=== PATIENT | male | born 1980 | race Caucasian/White ===

== ENCOUNTER → 2016-09-26 | Outpatient (CLI) | payer OTHER ==
--- NOTE | 2016-09-26 10:17 | RADIOLOGY REPORT (SQ) ---
EXAM DESCRIPTION: U/S ABDOMEN COMPLETE W/O DOP COMPLETED DATE/TIME: 09/26/2016 9:39 am REASON FOR STUDY: ELEVATED LIVER ENZYMES (R74.8) R74.8 ABNORMAL LEVELS OF OTHER SERUM ENZYMES COMPARISON: None. TECHNIQUE: Dynamic and static grayscale images acquired of the abdomen and recorded on PACS. Additio nal selected color Doppler and spectral images recorded. LIMITATIONS: None. FINDINGS: PANCREAS: Poorly visualized due to overlying bowel gas. LIVER: Echotexture is coarse with increased echogenicity consistent with fatty infiltration. LIVER VASCULATURE: Difficult to evaluate due to fatty infiltration. Flow is antegrade. GALLBLADDER: No stones. Normal wall thickness. No pericholecystic fluid. ULTRASOUND-DETECTED SALAZAR'S SIGN: Negative. INTRAHEPATIC DUCTS AND COMMON DUCT: CBD and intrahepatic ducts normal caliber. No filling defects. INFERIOR VENA CAVA: Unremarkable. AORTA: No aneurysm. RIGHT KIDNEY: Normal size. Normal echogenicity. No solid or suspicious masses. No hydronephrosis. No calcifications. LEFT KIDNEY: Normal size. Normal echogenicity. No solid or suspicious masses. No hydronephrosis. No calcifications. SPLEEN:Normal size. No solid masses. PERITONEAL AND PLEURAL SPACES: No ascites or effusions. OTHER: No other significant finding. IMPRESSION: FATTY LIVER. NO OTHER SIGNIFICANT FINDING. TECHNICAL DOCUMENTATION: JOB ID: [id number] [employer]- All Rights Reserved
== END ==
LOC: RAD 08:55
PROVIDERS: ATTEND Physician Assistant
DX: R74.8 Abnormal levels of other serum enzymes (principal); K76.0 Fatty (change of) liver, not elsewhere classified
CPT/HCPCS: 76700

== ENCOUNTER 2018-07-07 13:46 | Emergency (ER) | payer OTHER ==
[2018-07-07] MEDS ORDERED: ACETAMINOPHEN 325 MG TABLET PO ONE (14:27)
--- NOTE | 2018-07-07 14:27 | ER Document Report ---
ED Medical Screen (RME) - General Chief Complaint: Headache Stated Complaint: BLOOD PRESSURE ISSUES Time Seen by Provider: 07/07/18 14:15 Primary Care Provider: VALERIA SNYDER PA-C [Primary Care Provider] - Follow up as needed Mode of Arrival: Ambulatory Information source: Patient TRAVEL OUTSIDE OF THE [place] IN LAST 30 DAYS: No - HPI Patient complains to provider of: HEADACHE, HTN Notes: 07/07/18 14:25 Patient here with complaints of headache and elevated blood pressure. The patient has a history of hypertension, he takes lisinopril and has been taking it normally. Over the last few days has been having some headaches. Today he was feeling lightheaded and having headaches at work, they took his blood pressure and was noted to be 170s over 130s. Blood pressure has improved some here, he still feels lightheaded and has a headache. No head injury, no blood thinners. No numbness, tingling, weakness. No chest pain or shortness of breath. He does complain of some occasional swelling to the bilateral lower extremities. Exam Nontoxic, no distress. Lungs clear and equal throughout. Heart sounds normal. Nonfocal neuro exam. Plan CBC, CMP, troponin, EKG, UA, EKG, chest x-ray, head CT, Tylenol. An initial examination was made on the patient as part of the triage process, and it was determined a more comprehensive evaluation was necessary. Initial labs were ordered and patient was transferred to another provider in the ED who assumed care and finished evaluation and plan. - Related Data Allergies/Adverse Reactions: Sulfa (Sulfonamide Antibiotics) Allergy (Verified 07/07/18 13:47) Past Medical History - Social History Frequency of alcohol use: None Drug Abuse: None - Past Medical History Cardiac Medical History: Reports: Hx Hypertension Renal/ Medical History: Denies: Hx Peritoneal Dialysis - Immunizations Immunizations up to date: Yes Hx Diphtheria, Pertussis, Tetanus Vaccination: Yes Physical Exam - Vital signs Vitals: Temp Pulse Resp BP Pulse Ox 97.7 F 74 18 160/106 H 97 07/07/18 13:51 07/07/18 13:51 07/07/18 13:51 07/07/18 13:51 07/07/18 13:51 Course - Vital Signs Vital signs: Temp Pulse Resp BP Pulse Ox 97.7 F 74 18 160/106 H 97 07/07/18 13:51 07/07/18 13:51 07/07/18 13:51 07/07/18 13:51 07/07/18 13:51 Doctor's Discharge - Discharge Referrals: VALERIA SNYDER PA-C [Primary Care Provider] - Follow up as needed
[2018-07-07 15:11] LABS: ABSOLUTE BASOPHILS # (AUTO) 0.1 10^3/uL (0.0-0.2); ABSOLUTE EOSINOPHILS # (AUTO) 0.1 10^3/uL (0.0-0.6); ABSOLUTE LYMPHOCYTES (AUTO) 3.8 10^3/uL (0.5-4.7); ABSOLUTE MONOCYTES (AUTO) 0.8 10^3/uL (0.1-1.4); ABSOLUTE NEUT (AUTO) 6.1 10^3/uL (1.7-8.2); BASOPHILS % (AUTO) 0.6 % (0-2); EOSINOPHILS % (AUTO) 1.1 % (0-6); HEMATOCRIT 47.6 % (37.9-51.0); HEMOGLOBIN 16.6 g/dL (13.5-17.0); LYMPHOCYTES % (AUTO) 35.2 % (13-45); MEAN CORPUSCULAR HEMOGLOBIN 31.3 pg (27.0-33.4); MEAN CORPUSCULAR HGB CONC 34.8 g/dL (32.0-36.0); MEAN CORPUSCULAR VOLUME 90 fl (80-97); MONOCYTES % (AUTO) 7.3 % (3-13); PLATELET COUNT 235 10^3/uL (150-450); RED BLOOD COUNT 5.28 10^6/uL (4.35-5.55); RED CELL DISTRIBUTION WIDTH 12.8 % (11.5-14.0); SEGMENTED NEUTROPHILS % (AUTO) 55.8 % (42-78); TOTAL CELLS COUNTED % (AUTO) 100 %; WHITE BLOOD COUNT 10.9 10^3/uL (4.0-10.5)
[2018-07-07 15:31] LABS: ALANINE AMINOTRANSFERASE 99 U/L (21-72); ALBUMIN 4.8 g/dL (3.5-5.0); ALKALINE PHOSPHATASE 61 U/L (38-126); ANION GAP 10 (5-19); ASPARTATE AMINO TRANSFERASE 79 U/L (17-59); BILIRUBIN,DIRECT 0.3 mg/dL (0.0-0.4); BILIRUBIN,TOTAL 0.6 mg/dL (0.2-1.3); BLOOD UREA NITROGEN 12 mg/dL (7-20); CALCIUM 9.8 mg/dL (8.4-10.2); CARBON DIOXIDE 30 mmol/L (22-30); CHLORIDE 101 mmol/L (98-107); GLUCOSE 96 mg/dL (75-110); POTASSIUM 3.9 mmol/L (3.6-5.0); SODIUM 141.2 mmol/L (137-145); TOTAL PROTEIN 8.3 g/dL (6.3-8.2)
--- NOTE | 2018-07-07 15:35 | RADIOLOGY REPORT (SQ) ---
EXAM DESCRIPTION: CT HEAD WITHOUT COMPLETED DATE/TIME: 07/07/2018 2:38 pm REASON FOR STUDY: HTN, RICHARDSON COMPARISON: CTA head, 03/29/2013 TECHNIQUE: Axial images acquired through the brain without intravenous contrast. Images reviewed wi th bone, brain and subdural windows. Additional sagittal and coronal reconstructions were generated. Images stored on PACS. All CT scanners at this facility use dose modulation, iterative reconstruction, and/or weight based d osing when appropriate to reduce radiation dose to as low as reasonably achievable (ALARA). [facility]: Dose Right [facility]: CareDose [facility]: Dose Right [facility]: Teradose 4D [facility]: [facility] RADIATION DOSE: 1017 mGy cm LIMITATIONS: None. FINDINGS: VENTRICLES: Normal size and contour. CEREBRUM: No masses. No hemorrhage. No midline shift. No evidence for acute infarction. Normal gra y/white matter differentiation. No areas of low density in the white matter. CEREBELLUM: No masses. No hemorrhage. No alteration of density. No evidence for acute infarction. EXTRAAXIAL SPACES: No fluid collections. No masses. ORBITS AND GLOBE: No intra- or extraconal masses. Normal contour of globe without masses. CALVARIUM: No fracture. PARANASAL SINUSES: No fluid or mucosal thickening. SOFT TISSUES: No mass or hematoma. OTHER: No other significant finding. IMPRESSION: No acute intracranial pathology. No noncontrast CT findings to explain headache. 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 EVIDENCE OF ACUTE STROKE: NO. COMMENT: Quality ID # [id number]: Final reports with documentation of one or more dose reduction techniques (e.g., Automated exposure control, adjustment of the mA and/or kV according to patient size, use of iterative reconstruction technique) TECHNICAL DOCUMENTATION: JOB ID: [id number] [employer]- All Rights Reserved Reading location - IP/workstation name: [email or web address]
[2018-07-07 15:39] LABS: APPEARANCE,URINE CLEAR; BILIRUBIN,URINE NEGATIVE (NEGATIVE); COLOR,URINE COLORLESS; GLUCOSE, URINE NEGATIVE (NEGATIVE); KETONES,URINE NEGATIVE (NEGATIVE); LEUKOCYTE ESTERASE,URINE NEGATIVE (NEGATIVE); NITRITE,URINE NEGATIVE (NEGATIVE); PROTEIN,URINE NEGATIVE (NEGATIVE); URINE SPECIFIC GRAVITY 1.002; UROBILINOGEN,URINE NEGATIVE mg/dL (<2.0)
--- NOTE | 2018-07-07 16:03 | RADIOLOGY REPORT (SQ) ---
EXAM DESCRIPTION: CHEST 2 VIEWS COMPLETED DATE/TIME: 07/07/2018 3:00 pm REASON FOR STUDY: HTN COMPARISON: Two-view chest 08/02/2014 EXAM PARAMETERS: NUMBER OF VIEWS: two views TECHNIQUE: Digital Frontal and Lateral radiographic views of the chest acquired. RADIATION DOSE: NA LIMITATIONS: none FINDINGS: LUNGS AND PLEURA: No opacities, masses or pneumothorax. No pleural effusion. MEDIASTINUM AND HILAR STRUCTURES: No masses or contour abnormalities. HEART AND VASCULAR STRUCTURES: Heart normal size. No evidence for failure. BONES: No acute findings. HARDWARE: None in the chest. OTHER: No other significant finding. IMPRESSION: NO ACUTE RADIOGRAPHIC FINDING IN THE CHEST. TECHNICAL DOCUMENTATION: JOB ID: [id number] [employer]- All Rights Reserved Reading location - IP/workstation name: [email or web address]
[2018-07-07] MEDS ORDERED: IBUPROFEN 800 MG TABLET PO ONE (17:57)
--- NOTE | 2018-07-07 17:57 | ER Document Report ---
ED General - General Chief Complaint: Headache Stated Complaint: BLOOD PRESSURE ISSUES Time Seen by Provider: 07/07/18 14:15 Primary Care Provider: VALERIA SNYDER PA-C [Primary Care Provider] - Follow up as needed Mode of Arrival: Ambulatory Information source: Patient TRAVEL OUTSIDE OF THE [place] IN LAST 30 DAYS: No - HPI Patient complains to provider of: Blood pressure elevated, headaches Onset: Other Onset/Duration: Persistent - Last couple of days, Waxing and waning Quality of pain: Pressure, Sharp Severity: Moderate Pain Level: 2 Associated symptoms: None Exacerbated by: Denies Relieved by: Denies Similar symptoms previously: No Recently seen / treated by doctor: No Notes: 38-year-old male coming in today with waxing and waning headaches for the last several days and noticed an elevated blood pressure. Denies chest pain shortness of breath. Some nausea occasionally from pain. No vomiting. No fevers or chills. No neck stiffness. - Related Data Allergies/Adverse Reactions: Sulfa (Sulfonamide Antibiotics) Allergy (Verified 07/07/18 13:47) Past Medical History - General Information source: Patient - Social History Smoking Status: Never Smoker Frequency of alcohol use: None Drug Abuse: None Family History: Reviewed & Not Pertinent Patient has suicidal ideation: No Patient has homicidal ideation: No - Past Medical History Cardiac Medical History: Reports: Hx Hypertension Renal/ Medical History: Denies: Hx Peritoneal Dialysis - Immunizations Immunizations up to date: Yes Hx Diphtheria, Pertussis, Tetanus Vaccination: Yes Review of Systems - Review of Systems Notes: Constitutional: No fevers. No chills. EENT: No eye redness. No eye pain. No ear pain. No sore throat. Cardiovascular: No chest pain. No palpitations. Respiratory: No cough. No shortness of breath. No respiratory distress. Gastrointestinal: No abdominal pain. No nausea, vomiting, or diarrhea. Genitourinary: Atraumatic. No lesions. No pain. No discharge. Musculoskeletal: Atraumatic. No swelling. No deformities. Skin: No rash or lesions. Lymphatic: No swollen lymph nodes. Neurologic: Positive for headache Psychiatric: No suicidal or homicidal ideation. Physical Exam - Vital signs Vitals: Temp Pulse Resp BP Pulse Ox 97.7 F 74 18 160/106 H 97 07/07/18 13:51 07/07/18 13:51 07/07/18 13:51 07/07/18 13:51 07/07/18 13:51 - Notes Notes: General: Well-developed, well-nourished. In no acute distress. Non-toxic appearing. Cardiac: Well-perfused. Regular rate and rhythm. No murmurs, rubs, or gallops. Pulmonary: No respiratory distress. No cyanosis. Bilateral lung fiels are clear to auscultation. Abdominal: Non-distended. Non-rigid. Bowels sounds are present in all four quadrants. No guarding or rebound. HEENT: Head is atraumatic. Conjunctivae not reddened. No tearing. PERRL. EOMI. Orbits atraumatic. No periorbital swelling or erythema. Oropharynx is without erythema, swelling, or exudates. Neck: Supple. No adenopathy. No meningismus. Dermatologic: Warm with good turgor. No rash. Atraumatic. Chest: Atraumatic. No chest wall tenderness to palpation. Musculoskeletal: Moves all extremities well. No range of motion deficits. no muscular or joint tenderness. No paraspinal muscle tenderness. no midline spinal tenderness or step-off. Genitourinary: Examination deferred Neurologic: No gross neurologic deficits. Psychiatric: Normal mood. Course - Re-evaluation Re-evalutation: 07/07/18 17:54 Patient's blood pressure is 160/106. Definitely not too worried about it at this point. I think probably his blood pressure is spiking secondary to these headaches. He is kind of in a hurry to get out here saying go to his son's baseball game. I offered him a Toradol shot which she declined. He prefer ibuprofen. We will discharge him home with some Fioricet if he needs it. - Vital Signs Vital signs: Temp Pulse Resp BP Pulse Ox 97.7 F 74 18 160/106 H 97 07/07/18 13:51 07/07/18 13:51 07/07/18 13:51 07/07/18 13:51 07/07/18 13:51 - Laboratory Result Diagrams: 07/07/18 14:55 07/07/18 14:55 Laboratory results interpreted by me: 07/07/18 07/07/18 14:55 14:55 WBC 10.9 H AST 79 H ALT 99 H Total Protein 8.3 H Discharge - Discharge Clinical Impression: Elevated blood pressure reading Headache Qualifiers: Headache type: unspecified Headache chronicity pattern: acute headache Intractability: not intractable Qualified Code(s): R51 - Headache Condition: Good Disposition: HOME, SELF-CARE Instructions: Headache ([facility]) Additional Instructions: Follow-up with your primary care doctor for your blood pressure. For your headaches, try ibuprofen 4 tablets [id number] every 8 hours as needed. If you are having significantly worse headaches that are not responsive to ibuprofen, please refer to the directions on the bottle of Fioricet that was prescribed to you. Prescriptions: Butalb/Acetaminophen/Caffeine [Fioricet 50-300-40 mg Capsule] 1 cap PO Q6HP PRN #20 cap PRN Reason: Forms: Elevated Blood Pressure Referrals: VALERIA SNYDER PA-C [Primary Care Provider] - Follow up in 3-5 days
[2018-07-07 18:06] VITALS: BP 153/104
--- NOTE | 2018-07-07 18:30 | EKG REPORT ---
SEVERITY:- ABNORMAL ECG - SINUS RHYTHM VENTRICULAR PREMATURE COMPLEX LEFT VENTRICULAR HYPERTROPHY BORDERLINE T ABNORMALITIES, INFERIOR LEADS BORDERLINE PROLONGED QT INTERVAL : Confirmed by: Jose Juan Walker MD 07-Jul-2018 18:29:03
== END 2018-07-07 18:23 | disposition home or self-care (01) ==
LOC: ER 13:46
DX: R51 Headache (principal); R03.0 Elevated blood-pressure reading, without diagnosis of hypertension; Z88.2 Allergy status to sulfonamides
CPT/HCPCS: 36415; 70450; 71046; 80053; 81001; 84484; 85025; 93005; 93010; 99284

== ENCOUNTER 2019-12-05 13:11 | Emergency (ER) | payer OTHER ==
--- NOTE | 2019-12-05 13:37 | ER Document Report ---
ED Medical Screen (RME) - General Chief Complaint: Abdominal Pain Stated Complaint: ABDOMINAL PAIN Time Seen by Provider: 12/05/19 13:31 Primary Care Provider: VALERIA SNYDER PA-C [Primary Care Provider] - Follow up as needed Mode of Arrival: Ambulatory Information source: Patient Notes: 39-year-old male presented to ED for complaint of abdominal pain right upper quadrant. He states he has had the pain off and on for more than a week. He states that he has not had any nausea vomiting or fever. He states when his palpated his right upper quadrant he is very tender. He states he is having normal bowel movements. He does have a history of high blood pressure and cholesterol. He states he does not smoke has never smoked he used to drink once a month but has not drank in several years and does not use any illicit drugs. Patient is alert oriented respirations regular nonlabored speaking in full sentences. He does not appear to be in any acute distress at the moment. I have greeted and performed a rapid initial assessment of this patient. A comprehensive ED assessment and evaluation of the patient, analysis of test results and completion of medical decision making process will be conducted by an additional ED providers. TRAVEL OUTSIDE OF THE [place] IN LAST 30 DAYS: No - Related Data Allergies/Adverse Reactions: Sulfa (Sulfonamide Antibiotics) Allergy (Verified 07/07/18 13:47) Past Medical History - Past Medical History Cardiac Medical History: Reports: Hx Hypertension Renal/ Medical History: Denies: Hx Peritoneal Dialysis - Immunizations Immunizations up to date: Yes Hx Diphtheria, Pertussis, Tetanus Vaccination: Yes Physical Exam - Vital signs Vitals: Temp Pulse Resp BP Pulse Ox 98.0 F 89 20 132/87 H 99 12/05/19 13:15 12/05/19 13:15 12/05/19 13:15 12/05/19 13:15 12/05/19 13:15 Course - Vital Signs Vital signs: Temp Pulse Resp BP Pulse Ox 98.0 F 89 20 132/87 H 99 12/05/19 13:15 12/05/19 13:15 12/05/19 13:15 12/05/19 13:15 12/05/19 13:15 Doctor's Discharge - Discharge Referrals: VALERIA SNYDER PA-C [Primary Care Provider] - Follow up as needed
[2019-12-05 13:58] LABS: ABSOLUTE BASOPHILS # (AUTO) 0.1 10^3/uL (0.0-0.2); ABSOLUTE EOSINOPHILS # (AUTO) 0.1 10^3/uL (0.0-0.6); ABSOLUTE LYMPHOCYTES (AUTO) 2.4 10^3/uL (0.5-4.7); ABSOLUTE MONOCYTES (AUTO) 0.6 10^3/uL (0.1-1.4); ABSOLUTE NEUT (AUTO) 5.2 10^3/uL (1.7-8.2); BASOPHILS % (AUTO) 0.7 % (0-2); EOSINOPHILS % (AUTO) 0.9 % (0-6); HEMATOCRIT 46.1 % (37.9-51.0); HEMOGLOBIN 16.6 g/dL (13.5-17.0); LYMPHOCYTES % (AUTO) 29.3 % (13-45); MEAN CORPUSCULAR HEMOGLOBIN 31.8 pg (27.0-33.4); MEAN CORPUSCULAR VOLUME 88 fl (80-97); MONOCYTES % (AUTO) 6.9 % (3-13); PLATELET COUNT 230 10^3/uL (150-450); RED BLOOD COUNT 5.21 10^6/uL (4.35-5.55); RED CELL DISTRIBUTION WIDTH 12.5 % (11.5-14.0); SEGMENTED NEUTROPHILS % (AUTO) 62.2 % (42-78); TOTAL CELLS COUNTED % (AUTO) 100 %; WHITE BLOOD COUNT 8.3 10^3/uL (4.0-10.5)
[2019-12-05 14:21] LABS: ALBUMIN 4.4 g/dL (3.5-5.0); ALKALINE PHOSPHATASE 73 U/L (38-126); ANION GAP 6 (5-19); ASPARTATE AMINO TRANSFERASE 44 U/L (17-59); BILIRUBIN,DIRECT 0.2 mg/dL (0.0-0.4); BILIRUBIN,TOTAL 0.7 mg/dL (0.2-1.3); BLOOD UREA NITROGEN 15 mg/dL (7-20); CARBON DIOXIDE 29 mmol/L (22-30); CHLORIDE 98 mmol/L (98-107); CREATINE KINASE 82 U/L (55-170); GLUCOSE 271 mg/dL (75-110); POTASSIUM 4.3 mmol/L (3.6-5.0); TOTAL PROTEIN 7.3 g/dL (6.3-8.2)
--- NOTE | 2019-12-05 15:13 | RADIOLOGY REPORT (SQ) ---
EXAM DESCRIPTION: U/S ABDOMEN LIMITED W/O DOP IMAGES COMPLETED DATE/TIME: 12/05/2019 2:53 pm REASON FOR STUDY: ruq abdominal pain COMPARISON: 09/26/2016 TECHNIQUE: Dynamic and static grayscale images acquired of the abdomen and recorded on PACS. Gavnio gelacio selected color Doppler and spectral images recorded. LIMITATIONS: None. FINDINGS: PANCREAS: No masses. Visualized pancreatic duct normal caliber. LIVER: Hepatic steatosis. No focal mass lesion. No intrahepatic biliary dilatation. LIVER VASCULATURE: Normal directional flow of the main portal vein and hepatic veins. GALLBLADDER: Gallstone(s). No pericholecystic fluid. No wall thickening. ULTRASOUND-DETECTED SALAZAR'S SIGN: Negative. INTRAHEPATIC DUCTS AND COMMON DUCT: CBD and intrahepatic ducts normal caliber. No filling defects. INFERIOR VENA CAVA: Normal flow. AORTA: No aneurysm. RIGHT KIDNEY: Normal size. Normal echogenicity. No solid or suspicious masses. No hydronephrosis. No calcifications. PERITONEAL AND RIGHT PLEURAL SPACE: No ascites or effusions. OTHER: No other significant findings. IMPRESSION: Cholelithiasis without evidence of cholecystitis. Hepatic steatosis. TECHNICAL DOCUMENTATION: JOB ID: [id number] 2010 [employer] All Rights Reserved Reading location - IP/workstation name: [email or web address]
--- NOTE | 2019-12-05 16:48 | ER Document Report ---
ED GI/ - General Chief Complaint: Abdominal Pain Stated Complaint: ABDOMINAL PAIN Time Seen by Provider: 12/05/19 13:31 Primary Care Provider: VALERIA SYNDER PA-C [Primary Care Provider] - Follow up as needed Mode of Arrival: Ambulatory Notes: CHIEF COMPLAINT: Right upper quadrant pain for 2 weeks HPI: 39-year-old male presenting for evaluation of intermittent right upper quadrant pain over the last 2 weeks more persistent over the last 3 days slight nausea no vomiting no fever. No chest pain. Patient describes the discomfort as a soreness through the right upper quadrant periumbilical region. Patient has moved his bowels recently. ROS: See HPI - all other systems were reviewed and are otherwise negative Constitutional: no fever Eyes: no drainage, no blurred vision ENT: no runny nose, no sore throat Cardiovascular: no chest pain Resp: no SOB, no cough GI: no vomiting, no diarrhea, + abdominal pain : no dysuria Integumentary: no rash Allergy: no hives Musculoskeletal: no extremity pain or swelling Neurological: no numbness/tingling, no weakness MEDICATIONS: I agree with the patient medications as charted by the RN. ALLERGIES: I agree with the allergies as charted by the RN. PAST MEDICAL HISTORY/PAST SURGICAL HISTORY: Reviewed and agree as charted by RN. SOCIAL HISTORY: Reviewed and agree as charted by RN. FAMILY HISTORY: No significant familial comorbid conditions directly related to patient complaint EXAM: Reviewed vital signs as charted by RN. CONSTITUTIONAL: Alert and oriented and responds appropriately to questions. Well-appearing; well-nourished HEAD: Normocephalic; atraumatic EYES: PERRL; Conjunctivae clear, sclerae non-icteric ENT: normal nose; no rhinorrhea; moist mucous membranes; pharynx without lesions noted, no uvula edema or deviation, no tonsillar hypertrophy, phonation normal NECK: Supple without meningismus; non-tender; no cervical lymphadenopathy, no masses CARD: RRR; no murmurs, no clicks, no rubs, no gallops; symmetric distal pulses RESP: Normal chest excursion without splinting or tachypnea; breath sounds clear and equal bilaterally; no wheezes, no rhonchi, no rales, pulse oximetry 98% on room air not hypoxic ABD/GI: Normal bowel sounds; non-distended; soft, mild tenderness in the right upper quadrant on palpation, mild positive Dominguez's 39-year-old male, no rebound, no guarding; no palpable organomegaly or masses. BACK: The back appears normal and is non-tender to palpation, there is no CVA tenderness EXT: Normal ROM in all joints; non-tender to palpation; no cyanosis, no effusions, no edema SKIN: Normal color for age and race; warm; dry; good turgor; no acute lesions noted NEURO: Moves all extremities equally; Motor and sensory function intact PSYCH: The patient's mood and manner are appropriate. Grooming and personal hygiene are appropriate. MDM: Presenting for right upper quadrant pain intermittently for 2 weeks worse over the last 3 days. No fever. Awaiting screening labs. Ultrasound ordered through triage process shows cholelithiasis no cholecystitis. Patient declines pain medication. TRAVEL OUTSIDE OF THE [place] IN LAST 30 DAYS: No - Related Data Allergies/Adverse Reactions: Sulfa (Sulfonamide Antibiotics) Allergy (Verified 07/07/18 13:47) Past Medical History - General Information source: Patient - Social History Smoking Status: Unknown if Ever Smoked Family History: Reviewed & Not Pertinent - Past Medical History Cardiac Medical History: Reports: Hx Hypertension Renal/ Medical History: Denies: Hx Peritoneal Dialysis - Immunizations Immunizations up to date: Yes Hx Diphtheria, Pertussis, Tetanus Vaccination: Yes Physical Exam - Vital signs Vitals: Temp Pulse Resp BP Pulse Ox 98.0 F 89 20 132/87 H 99 12/05/19 13:15 12/05/19 13:15 12/05/19 13:15 12/05/19 13:15 12/05/19 13:15 Course - Re-evaluation Re-evalutation: 12/05/19 17:36 Patient is comfortable at this time. We discussed evaluation results. He will follow-up outpatient with surgery. Has not required pain management in the emergency department I will call the patient in pain medicine and nausea medicine at his pharmacy. I gave him strict return precautions for worsening or uncontrolled pain or vomiting at home. Patient verbalizes understanding - Vital Signs Vital signs: Temp Pulse Resp BP Pulse Ox 98.0 F 89 20 132/87 H 99 12/05/19 17:01 12/05/19 13:15 12/05/19 13:15 12/05/19 13:15 12/05/19 13:15 - Laboratory Result Diagrams: 12/05/19 13:40 12/05/19 13:40 Laboratory results interpreted by me: 12/05/19 12/05/19 13:40 13:40 Sodium 133.2 L Glucose 271 H ALT 52 H Urine Glucose (UA) >=500 H Urine Blood MODERATE H Discharge - Discharge Clinical Impression: Abdominal pain, right upper quadrant Cholelithiasis Qualifiers: Cholelithiasis location: gallbladder Cholecystitis presence: without chol ecystitis Biliary obstruction: without biliary obstruction Qualified Code(s): K80.20 - Calculus of gallbladder without cholecystitis without obstruction Condition: Stable Disposition: HOME, SELF-CARE Prescriptions: Oxycodone HCl/Acetaminophen [Percocet 5-325 mg Tablet] 1 tab PO Q4H PRN #15 tab PRN Reason: Ondansetron [Zofran Odt 4 mg Tablet] 1 - 2 tab PO Q4H PRN #15 tab.rapdis PRN Reason: For Nausea/Vomiting Referrals: VALERIA SNYDER PA-C [Primary Care Provider] - Follow up as needed RIGO DOWNS MD [ACTIVE STAFF] - Follow up as needed
[2019-12-05 17:27] LABS: APPEARANCE,URINE CLEAR; BILIRUBIN,URINE NEGATIVE (NEGATIVE); COLOR,URINE YELLOW; GLUCOSE, URINE >=500 mg/dL (NEGATIVE); KETONES,URINE NEGATIVE (NEGATIVE); LEUKOCYTE ESTERASE,URINE NEGATIVE (NEGATIVE); NITRITE,URINE NEGATIVE (NEGATIVE); PROTEIN,URINE NEGATIVE (NEGATIVE); URINE SPECIFIC GRAVITY 1.018; UROBILINOGEN,URINE NEGATIVE mg/dL (<2.0)
[2019-12-05 18:02] VITALS: BP 129/91
== END 2019-12-05 18:02 | disposition home or self-care (01) ==
LOC: ER 13:11
DX: K80.20 Calculus of gallbladder without cholecystitis without obstruction (principal); K76.0 Fatty (change of) liver, not elsewhere classified; R10.11 Right upper quadrant pain; R11.0 Nausea; I10 Essential (primary) hypertension; Z79.84 Long term (current) use of oral hypoglycemic drugs; Z79.899 Other long term (current) drug therapy; Z88.2 Allergy status to sulfonamides
CPT/HCPCS: 36415; 76705; 80053; 81001; 82550; 83690; 85025; 87086; 99284

== ENCOUNTER 2019-12-28 08:16 | Day surgery (SDC) | payer OTHER ==
[2019-12-23 12:09] LABS: HEMATOCRIT 47.4 % (37.9-51.0); HEMOGLOBIN 16.4 g/dL (13.5-17.0); MEAN CORPUSCULAR HEMOGLOBIN 31.2 pg (27.0-33.4); MEAN CORPUSCULAR HGB CONC 34.7 g/dL (32.0-36.0); MEAN CORPUSCULAR VOLUME 90 fl (80-97); PLATELET COUNT 232 10^3/uL (150-450); RED BLOOD COUNT 5.27 10^6/uL (4.35-5.55); RED CELL DISTRIBUTION WIDTH 12.9 % (11.5-14.0); WHITE BLOOD COUNT 8.7 10^3/uL (4.0-10.5)
[2019-12-23 12:48] LABS: ALBUMIN 4.8 g/dL (3.5-5.0); ALKALINE PHOSPHATASE 64 U/L (38-126); AMYLASE 55 U/L (30-110); ANION GAP 11 (5-19); ASPARTATE AMINO TRANSFERASE 41 U/L (17-59); BILIRUBIN,DIRECT 0.2 mg/dL (0.0-0.4); BILIRUBIN,TOTAL 0.6 mg/dL (0.2-1.3); BLOOD UREA NITROGEN 16 mg/dL (7-20); CALCIUM 9.5 mg/dL (8.4-10.2); CARBON DIOXIDE 31 mmol/L (22-30); CHLORIDE 98 mmol/L (98-107); GLUCOSE 133 mg/dL (75-110); POTASSIUM 4.5 mmol/L (3.6-5.0); TOTAL PROTEIN 7.6 g/dL (6.3-8.2)
[~2019-12-28 08:16] MED LIST: ACETAMINOPHEN 325 MG TABLET PO PRN; CEFAZOLIN 1 GM/D5W RTU 1 GM/50 ML RTUPB IV ONE; CEFAZOLIN 1 GM/D5W RTU 1 GM/50 ML RTUPB IV PRN; LACTATED RINGERS 1000 ML IV PRN
[2019-12-28] MEDS ORDERED: FENTANYL CITRATE INJ/PF 250 MCG/5 ML AMPULE ONE (08:26)
[2019-12-28] MEDS ORDERED: PROPOFOL INJ 200 MG/20 ML VIAL IV ONE (08:27)
[2019-12-28] MEDS ORDERED: MIDAZOLAM 2 MG/2 ML INJ ONE (08:27)
[2019-12-28] MEDS ORDERED: BUPIVACAINE HCL 0.25 % INJ/PF (2.5 MG/1 ML) 30 ML VIAL ONE (08:57)
[2019-12-28] MEDS ORDERED: ONDANSETRON HCL INJ/PF 4 MG/2 ML SDV IV PRN (09:53)
[2019-12-28] MEDS ORDERED: OXYCODONE-ACETAMINOPHEN 5-325 MG TABLET PO PRN ×3 (09:53→10:32)
[2019-12-28] MEDS ORDERED: MORPHINE SULFATE 10 MG/ML INJ IV PRN (09:53)
[2019-12-28] MEDS ORDERED: FENTANYL CITRATE INJ/PF 100 MCG/2 ML AMPUL IV PRN ×3 (09:53)
[2019-12-28] MEDS ORDERED: LABETALOL HCL INJ 20 MG/4 ML DISP.SYRIN IV PRN (09:53)
[2019-12-28] MEDS ORDERED: DIPHENHYDRAMINE HCL 50 MG/ML VIAL IV PRN (09:53)
[2019-12-28] MEDS ORDERED: MEPERIDINE HCL/PF INJ 25 MG/1 ML DISP.SYRIN IV PRN (09:53)
[2019-12-28] MEDS ORDERED: PROMETHAZINE HCL INJ 25 MG/1 ML VIAL IV PRN ×2 (09:53)
--- NOTE | 2019-12-28 10:32 | Discharge Summary ---
Discharge Summary (SDC) - Discharge Final Diagnosis: symptomatic cholelithiasis Date of Surgery: 12/28/19 Discharge Date: 12/28/19 Condition: Good Treatment or Instructions: [facility] [address] [place], [place] [id number] Discharge Instructions: Laparoscopic Surgery 1. General Information: a. DO NOT DRIVE a car or operate dangerous machinery for 3-4 days or while taking narcotic pain pills. b. DO NOT consume alcohol, tranquilizers, sleeping medications or any non- prescribed medications for 24 hours unless approved by your doctor or as long as taking narcotic prescription medications. c. DO NOT make important decisions or sign any important papers for the first 24 hours after surgery. d. When discharged home the same day of surgery have a responsible person with you for the first night. 2. Activity Restrictions: 2 weeks. a. NO heavy lifting, straining abdominal muscles, bending over a lot, yard work, house work, or sports for [address] drive for 3-4 days . c. It is fine to go for walks, up and down steps, ride in a car. d. Elevate your head when sleeping/resting. 3. Treatment: a. You may shower 24 hours after surgery, no baths or swimming for 2 weeks. Leave paper strips (steri-strips) on the skin to fall off on their own. If still on at postoperative visit they will be removed then. b. Drainage of fluid or blood is not unusual from an incision. If occurs, you can clean with peroxide and cotton ball daily and cover with dry gauze until the wound seals. c. If a lot of bleeding occurs, you can hold pressure with a gauze or cloth over the site for 10 minutes and it will usually stop. If bleeding continues you will need to call for possible evaluation in office or emergency room. 4. Medications: a. __Toradol__ may be taken for pain as needed, one tablets every 6 hours. Do not take additional NSAIDs with medication. You may take Tylenol as needed. b. You should resume all normal medications unless a change is specified by your doctors. 5. Diet: Begin with clear liquids and may progress to your normal diet if not nauseated. No high fat, high protein foods the day of surgery. 6. The following may occur after laparoscopic surgery: a. Shoulder or upper back ache from retained gas that should resolve in 1-2 days b. Soreness and bruising at incision sites will resolve with time. c. Scrotal swelling (labia in women) and bruising is often seen after hernia surgery. d. Sore throat e. Fatigue may last days to weeks. f. Difficulty urinating may occur and may need to come into emergency room for urinary catheter placement. 7. Notify Physician If: a. Worsening or pain not improved with pain medication b. Persistent nausea and vomiting c. Fever above 101 d. Persistent bleeding or swelling at operative site e. Unable to urinate and uncomfortable bladder 6-8 hours after surgery 8..Follow Up Care: a. Schedule a follow up appointment with your doctor for 2 weeks. In the event of any postoperative problems or questions or you may call the office during business hours or the On-Call physician evenings and weekends at Replaced By [facility]. [facility] Replaced By [facility] I understand the instructions for my postoperative care as described above and a copy has been given to me. Patient/Significant Other Witness Date Prescriptions: Ketorolac Tromethamine [Toradol 10 mg Tablet] 10 mg PO Q6HP PRN #20 tablet PRN Reason: Referrals: VALERIA SNYDER PA-C [Primary Care Provider] - Discharge Diet: Other (Comments) - small bland portions then progress Respiratory Treatments at Home: Deep Breathing/Coughing, CPAP Additional Home Respiratory Instructions: SLEEP WITH YOUR HEAD ELEVATED. Discharge Activity: Activity As Tolerated, No Lifting Over 10 Pounds, No tub bath Home Care Assistance: None Needed, Provided by Family Report the Following to Your Physician Immediately: Shortness of Breath, Increase in Pain, Fever over 101 Degrees, Unusual Bleeding, Redness, Drainage- Foul Smelling, IV Site Infection Signs
--- NOTE | 2019-12-28 10:39 | Operative Report ---
Operative Report DATE OF SURGERY: 12/28/19 PREOPERATIVE DIAGNOSIS: Symptomatic cholelithiasis with cholecystitis POSTOPERATIVE DIAGNOSIS: Same OPERATION: Laparoscopic cholecystectomy SURGEON: RIGO HEATH OCEANOGRAPHER ASSISTANT: BO HUITRON ANESTHESIA: GA TISSUE REMOVED OR ALTERED: 1 gallbladder COMPLICATIONS: None ESTIMATED BLOOD LOSS: 25 cc INTRAOPERATIVE FINDINGS: See below PROCEDURE: Patient was taken to the preop holding area the main operating room where g eneral anesthesia was induced. Were abducted, abdomen prepped draped sterile fashion with Betadine Surgical plan and surgical timeout were conducted. Markings were made on the skin for for port laparoscopy. All 4 sites were anesthetized 1% plain lidocaine. A supraumbilical vertical incision was made with a 15 blade. Veress needle was inserted into the peritoneal cavity, pneumoperitoneum was established, and a 5 mm port was then inserted after needle removal. We then placed a 5 mm flexible scope Endo I into the peritoneal cavity check for bleeding or visceral injury and there was none. Under direct visualization 3 additional ports were placed one in the subxiphoid and 2 in the subcostal position. Findings are significant for a nondistended gallbladder. We initially placed graspers on the gallbladder and attempted to lift up over the liver bed but due to the anatomic fixation of the gallbladder to the right lobe of the liver, I felt that a top-down approach would be more appropriate and safe. Therefore the gallbladder was taken off the liver bed using hook cautery dissection. A small bleeding spot was encountered from the liver along the lateral border of the gallbladder. It was managed with a hook cautery and the cell. We continue to take the level of dissection down all the way to the point that the gallbladder was suspended by the infundibulum. We unveiled the lower end inferior portion of the infundibulum using hook cautery dissection. The cystic artery was surrounded with a right angle clamp, clipped twice proximally once distally and divided with scissors. During the dissection, due to the flimsy nature of the gallbladder, and the adhesions surrounding the infundibulum, an opening was made in the gallbladder and its contents aspirated out. This served as a as a landmark for the remaining action. The adhesive tissue around the infundibulum was taken down with hook dissection. We now brought onto the field a 0 PDS Endoloop, and placed around the neck of the gallbladder. The knot was secured and the gallbladder amputated from its neck. The gallbladder was removed and the patient to the supraumbilical port site without stone spillage. We returned the peritoneal cavity, checked for bleeding and there was none,particularly the lateral action edge of the liver. We also inspected the clips stick artery, and the Endoloop securing the cystic neck. There was no evidence of bile leak. At this point felt the operation was complete. Sponge and needle counts are correct. All ports removed under direct visualization, pneumoperitoneum tawnya cuated, wounds closed with 0 Vicryl, 3-0 Vicryl, benzoin and Steri-Strips. Patient tolerated the procedure well, extubated, taken to the recovery room in stable condition. The physician assistant project manager, Ms. Dang, provided assistance during this case by: Assisting and port insertion, retracting tissue, instillation of local anesthesia and closure of skin incisions.
[2019-12-28] MEDS ORDERED: FENTANYL CITRATE INJ/PF 100 MCG/2 ML AMPUL ONE (10:52)
[2019-12-28] MEDS ORDERED: OXYCODONE-ACETAMINOPHEN 5-325 MG TABLET ONE (11:16)
[2019-12-28 13:49] VITALS: BP 102/66
[2019-12-28] MEDS ORDERED: SUCCINYLCHOLINE CHLORIDE INJ 200 MG/10 ML VIAL ONE (15:05)
[2019-12-28] MEDS ORDERED: GLYCOPYRROLATE 1 MG/5 ML VIAL ONE (15:05)
[2019-12-28] MEDS ORDERED: ROCURONIUM BROMIDE INJ 50 MG/5 ML VIAL IV ONE (15:05)
[2019-12-28] MEDS ORDERED: DEXAMETHASONE SOD PHOSPHATE INJ 4 MG/1 ML VIAL ONE (15:05)
[2019-12-28] MEDS ORDERED: ONDANSETRON HCL INJ/PF 4 MG/2 ML SDV ONE (15:05)
[2019-12-28] MEDS ORDERED: NEOSTIGMINE METHYLSULFATE 10 MG/10 ML VIAL ONE (15:05)
== END 2019-12-28 13:35 | disposition hospice, home (50) ==
LOC: OROUT 08:16
PROVIDERS: ATTEND Surgery
DX: K80.10 Calculus of gallbladder with chronic cholecystitis without obstruction (principal); G47.31 Primary central sleep apnea; E11.9 Type 2 diabetes mellitus without complications; E78.00 Pure hypercholesterolemia, unspecified; R51.9 Headache, unspecified; E66.9 Obesity, unspecified; I10 Essential (primary) hypertension; Z99.89 Dependence on other enabling machines and devices; Z20.828 Contact with and (suspected) exposure to other viral communicable diseases; Z88.2 Allergy status to sulfonamides; Z79.84 Long term (current) use of oral hypoglycemic drugs; Z79.891 Long term (current) use of opiate analgesic
CPT/HCPCS: 47562; 36415; 82962; 82150; 85027; 80076; 80048; 88304 ×2; 00790; U0003; J2250; J0690; J3490 ×2; J1100; J3010 ×2; J2710; J0330; J2405; J2704; C9803; 790; 87635

== ENCOUNTER 2020-01-24 03:52 | Emergency (ER) | payer OTHER ==
[2020-01-24 10:29] LABS: ABSOLUTE LYMPHOCYTES (AUTO) 1.7 10^3/uL (0.5-4.7); ABSOLUTE MONOCYTES (AUTO) 0.5 10^3/uL (0.1-1.4); BASOPHILS % (AUTO) 0.3 % (0-2); HEMATOCRIT 43.7 % (37.9-51.0); MEAN CORPUSCULAR HEMOGLOBIN 30.7 pg (27.0-33.4); MEAN CORPUSCULAR HGB CONC 34.4 g/dL (32.0-36.0); MEAN CORPUSCULAR VOLUME 89 fl (80-97); MONOCYTES % (AUTO) 4.7 % (3-13); PLATELET COUNT 265 10^3/uL (150-450); RED CELL DISTRIBUTION WIDTH 12.7 % (11.5-14.0); TOTAL CELLS COUNTED % (AUTO) 100 %; WHITE BLOOD COUNT 10.3 10^3/uL (4.0-10.5)
[2020-01-24 10:41] LABS: ALBUMIN 4.6 g/dL (3.5-5.0); ALKALINE PHOSPHATASE 60 U/L (38-126); ANION GAP 9 (5-19); ASPARTATE AMINO TRANSFERASE 31 U/L (17-59); BILIRUBIN,TOTAL 0.6 mg/dL (0.2-1.3); BLOOD UREA NITROGEN 12 mg/dL (7-20); CALCIUM 9.9 mg/dL (8.4-10.2); CARBON DIOXIDE 31 mmol/L (22-30); CHLORIDE 101 mmol/L (98-107); GLUCOSE 114 mg/dL (75-110); POTASSIUM 4.7 mmol/L (3.6-5.0); TOTAL PROTEIN 7.5 g/dL (6.3-8.2)
--- NOTE | 2020-01-24 15:00 | RADIOLOGY REPORT (SQ) ---
EXAM DESCRIPTION: U/S ABDOMEN LIMITED W/O DOP IMAGES COMPLETED DATE/TIME: 01/24/2020 2:48 pm REASON FOR STUDY: epigastric pain COMPARISON: None. TECHNIQUE: Dynamic and static grayscale images acquired of the abdomen and recorded on PACS. Additio nal selected color Doppler and spectral images recorded. LIMITATIONS: None. FINDINGS: PANCREAS: No masses. Visualized pancreatic duct normal caliber. LIVER: Hepatomegaly. Increased echogenicity. No masses. LIVER VASCULATURE: Normal directional flow of the main portal vein and hepatic veins. GALLBLADDER: Surgically absent. ULTRASOUND-DETECTED SALAZAR'S SIGN: Not applicable. INTRAHEPATIC DUCTS AND COMMON DUCT: CBD and intrahepatic ducts normal caliber. No filling defects. AORTA: No aneurysm. RIGHT KIDNEY: Normal size, 14.6 cm. Normal echogenicity. No solid or suspicious masses. No hydroneph rosis. No calcifications. PERITONEAL AND RIGHT PLEURAL SPACE: No ascites or effusions. OTHER: No other significant findings. IMPRESSION: Hepatomegaly. Hepatic steatosis. TECHNICAL DOCUMENTATION: JOB ID: [id number] 2010 Results [employer]- All Rights Reserved Reading location - IP/workstation name: [email or web address]
--- NOTE | 2020-01-24 15:39 | ER Document Report ---
ED GI/ - General Chief Complaint: Abdominal Pain Stated Complaint: ABDOMINAL PAIN Time Seen by Provider: 01/24/20 12:07 Primary Care Provider: VALERIA SNYDER PA-C [Primary Care Provider] - Follow up as needed Mode of Arrival: Ambulatory Information source: Patient Notes: 40-year-old male patient presented to the emergency department chief complaint of upper abdominal pain that began just prior to arrival. He denies any fever, chills, nausea, vomiting or diarrhea. He states the pain felt similar to when he had a gallbladder attack. He has since had a cholecystectomy. At the time of my evaluation the patient actually reports he feels much improved, he has be en in the emergency department for approximately 8 hours waiting in the lobby. TRAVEL OUTSIDE OF THE [place] IN LAST 30 DAYS: No - Related Data Allergies/Adverse Reactions: Sulfa (Sulfonamide Antibiotics) Allergy (Severe, Verified 01/24/20 11:39) Hives Past Medical History - General Information source: Patient - Social History Smoking Status: Never Smoker Frequency of alcohol use: None Drug Abuse: None Family History: Reviewed & Not Pertinent - Past Medical History Cardiac Medical History: Reports: Hx Hypertension Denies: Hx Coronary Artery Disease, Hx Heart Attack Pulmonary Medical History: Denies: Hx Asthma, Hx Bronchitis, Hx COPD, Hx Pneumonia Neurological Medical History: Denies: Hx Cerebrovascular Accident, Hx Seizures Endocrine Medical History: Reports: Hx Diabetes Mellitus Type 2 - pre Renal/ Medical History: Denies: Hx Peritoneal Dialysis Musculoskeletal Medical History: Denies Hx Arthritis Past Surgical History: Reports: Hx Cholecystectomy - Immunizations Immunizations up to date: Yes Hx Diphtheria, Pertussis, Tetanus Vaccination: Yes Review of Systems - Review of Systems Gastrointestinal: Abdominal pain -: Yes All other systems reviewed and negative Physical Exam - Vital signs Vitals: Temp Pulse BP Pulse Ox 97.4 F 58 L 109/72 97 01/24/20 07:07 01/24/20 07:07 01/24/20 07:07 01/24/20 07:07 - Notes Notes: PHYSICAL EXAMINATION: GENERAL: Well-appearing, well-nourished and in no acute distress. HEAD: Atraumatic, normocephalic. EYES: Pupils equal round and reactive to light, extraocular movements intact, sclera anicteric, conjunctiva are normal. ENT: Nares patent, oropharynx clear without exudates. Moist mucous membranes. NECK: Normal range of motion, supple without lymphadenopathy LUNGS: Breath sounds clear to auscultation bilaterally and equal. No wheezes rales or rhonchi. HEART: Regular rate and rhythm without murmurs ABDOMEN: Soft, nondistended abdomen. Mild tenderness in the epigastric region. No guarding, no rebound. No masses appreciated. Musculoskeletal: Normal range of motion, no pitting or edema. No cyanosis. NEUROLOGICAL: Cranial nerves grossly intact. Normal speech, normal gait. Normal sensory, motor exams PSYCH: Normal mood, normal affect. SKIN: Warm, Dry, normal turgor, no rashes or lesions noted. Course - Re-evaluation Re-evalutation: Abdomen Ultrasound 01/24/20 12:57 IMPRESSION: Hepatomegaly. Hepatic steatosis. Laboratory 01/24/20 01/24/20 09:50 09:50 WBC 10.3 RBC 4.90 Hgb 15.0 Hct 43.7 MCV 89 MCH 30.7 MCHC 34.4 RDW 12.7 Plt Count 265 Lymph % (Auto) 17.0 Delta % (Auto) 4.7 Eos % (Auto) 0.0 Baso % (Auto) 0.3 Absolute Neuts (auto) 8.0 Absolute Lymphs (auto) 1.7 Absolute Monos (auto) 0.5 Absolute Eos (auto) 0.0 Absolute Basos (auto) 0.0 Seg Neutrophils % 78.0 Sodium 140.6 Potassium 4.7 Chloride 101 Carbon Dioxide 31 H Anion Gap 9 BUN 12 Creatinine 0.63 Est GFR ( Amer) > 60 Est GFR (MDRD) Non-Af > 60 Glucose 114 H Calcium 9.9 Total Bilirubin 0.6 Direct Bilirubin 0.0 Neonat Total Bilirubin Not Reportable Neonat Direct Bilirubin Not Reportable Neonat Indirect Bili Not Reportable AST 31 ALT 36 Alkaline Phosphatase 60 Total Protein 7.5 Albumin 4.6 Lipase 93.5 Patient appears well, nontoxic, work-up today has been reassuring. He has had a normal lab work-up and a normal right upper quadrant ultrasound. He has had a history of a cholecystectomy. He actually states he feels fine now. He initially had epigastric pain. He thinks he may have ate something wrong. [facility] ED return precautions were discussed, patient verbalized understanding and agreement with same. - Vital Signs Vital signs: Temp Pulse Resp BP Pulse Ox 98.3 F 64 18 122/89 H 100 01/24/20 15:55 01/24/20 15:55 01/24/20 15:55 01/24/20 15:55 01/24/20 15:55 - Laboratory Result Diagrams: 01/24/20 09:50 01/24/20 09:50 Laboratory results interpreted by me: 01/24/20 09:50 Carbon Dioxide 31 H Glucose 114 H Discharge - Discharge Clinical Impression: Abdominal pain Qualifiers: Abdominal location: generalized Qualified Code(s): R10.84 - Generalized abdominal pain Condition: Stable Disposition: HOME, SELF-CARE Additional Instructions: You have been seen in the Emergency Department (ED) for abdominal pain. Your evaluation did not identify a clear cause of your symptoms but was generally reassuring. Please follow up with your doctor as soon as possible regarding today's emergent visit and the symptoms that are bothering you. Return to the ED if your abdominal pain worsens or fails to improve, you develop bloody vomiting, bloody diarrhea, you are unable to tolerate fluids due to vomiting, fever greater than 101, or other symptoms that concern you. Forms: Return to Work Referrals: VALERIA SNYDER PA-C [Primary Care Provider] - Follow up as needed
[2020-01-24 15:59] VITALS: BP 122/89
== END 2020-01-24 16:03 | disposition home or self-care (01) ==
LOC: ER 03:52
DX: R10.84 Generalized abdominal pain (principal); I10 Essential (primary) hypertension; Z88.2 Allergy status to sulfonamides
CPT/HCPCS: 36415; 76705; 80053; 83690; 85025; 99284

== ENCOUNTER 2020-02-07 02:53 | Inpatient (IN) | payer OTHER ==
[2020-02-07] MEDS ORDERED: NORMAL SALINE 1000 ML 1,000 ML IV ONE ×2 (03:55→08:14)
[2020-02-07 04:39] LABS: HEMATOCRIT 42.5 % (37.9-51.0); HEMOGLOBIN 14.4 g/dL (13.5-17.0); MEAN CORPUSCULAR HEMOGLOBIN 30.7 pg (27.0-33.4); MEAN CORPUSCULAR VOLUME 90 fl (80-97); PLATELET COUNT 198 10^3/uL (150-450); RED BLOOD COUNT 4.71 10^6/uL (4.35-5.55); RED CELL DISTRIBUTION WIDTH 12.7 % (11.5-14.0); WHITE BLOOD COUNT 14.9 10^3/uL (4.0-10.5)
[2020-02-07 04:54] LABS: ALBUMIN 4.4 g/dL (3.5-5.0); ALKALINE PHOSPHATASE 138 U/L (38-126); ANION GAP 8 (5-19); ASPARTATE AMINO TRANSFERASE 324 U/L (17-59); BILIRUBIN,DIRECT 2.2 mg/dL (0.0-0.4); BILIRUBIN,TOTAL 3.5 mg/dL (0.2-1.3); BLOOD UREA NITROGEN 12 mg/dL (7-20); CALCIUM 9.6 mg/dL (8.4-10.2); CARBON DIOXIDE 30 mmol/L (22-30); CHLORIDE 102 mmol/L (98-107); GLUCOSE 216 mg/dL (75-110); POTASSIUM 3.7 mmol/L (3.6-5.0); TOTAL PROTEIN 7.2 g/dL (6.3-8.2)
[2020-02-07 05:02] LABS: ABSOLUTE LYMPHOCYTES# (MANUAL) 0.7 10^3/uL (0.5-4.7); ABSOLUTE MONOCYTES # (MANUAL) 0.6 10^3/uL (0.1-1.4); BASOPHILS % (MANUAL) 0 % (0-2); EOSINOPHILS % (MANUAL) 0 % (0-6); LYMPHOCYTES % (MANUAL) 5 % (13-45); MONOCYTES % (MANUAL) 4 % (3-13); SEGMENTED NEUTROPHILS % (MAN) 91 % (42-78); TOTAL CELLS COUNTED 100
[2020-02-07] MEDS ORDERED: ONDANSETRON HCL INJ/PF 4 MG/2 ML SDV IV ONE (05:03)
[2020-02-07] MEDS ORDERED: MORPHINE SULFATE 10 MG/ML INJ IV ONE (05:03)
[2020-02-07 05:04] LABS: ANISOCYTOSIS SLIGHT; PLATELET COMMENT ADEQUATE; POIKILOCYTOSIS SLIGHT; TEAR DROP CELLS SLIGHT; TOXIC GRANULATION SLIGHT
[2020-02-07] MEDS ORDERED: FAMOTIDINE INJ/PF 20 MG/2 ML SDV IV ONE (05:04)
--- NOTE | 2020-02-07 05:08 | ER Document Report ---
ED General - General TRAVEL OUTSIDE OF THE [place] IN LAST 30 DAYS: No - Related Data Home Medications: metformin 200mg qhs. atorvastatin 40 mg qday. metoprolol 50 mg qday. lisinopril 40 mg qday. omeprazole 20 mg qday. actos 30 mg qday <MIN RODRIGUEZ - Last Filed: 02/07/20 06:07> <ARIELA SCHERER - Last Filed: 02/07/20 07:27> - General Chief Complaint: Abdominal Pain Stated Complaint: ABDOMINAL PAIN Time Seen by Provider: 02/07/20 03:53 Primary Care Provider: VALERIA SNYDER PA-C [Primary Care Provider] - Follow up as needed - [facility] Notes: Patient is a 40-year-old male who presents to the emergency department for evaluation. He complains of abdominal pain. He states this is more in the [facility] er region, but states is actually all over his abdomen. He has had multiple episodes of this since his cholecystectomy last month. He states that tonight his pain started around midnight. It was associated with diaphoresis. It was sudden in onset. Sharp and stabbing, he rates it a 10 out of 10. Its associated with 2 episodes of emesis. I asked him about hematemesis or bilious emesis, the patient states he is not sure what his vomit looked like. He has had loose stools since his cholecystectomy. No fevers or chills. He states that pain is worsened by eating food, he states he really has not been eating much. No urinary symptoms. This is his second visit to the emergency department for evaluation of the similar pain. (MIN RODRIGUEZ) - Related Data Allergies/Adverse Reactions: Sulfa (Sulfonamide Antibiotics) Allergy (Severe, Verified 01/24/20 11:39) [place] Past Medical History - General Information source: Patient - Social History Smoking Status: Never Smoker Family History: Reviewed & Not Pertinent - Past Medical History Cardiac Medical History: Reports: Hx Hypercholesterolemia, Hx Hypertension Denies: Hx Coronary Artery Disease, Hx Heart Attack Pulmonary Medical History: Denies: Hx Asthma, Hx Bronchitis, Hx COPD, Hx Pneumonia Neurological Medical History: Denies: Hx Cerebrovascular Accident, Hx Seizures Endocrine Medical History: Reports: Hx Diabetes Mellitus Type 2 Renal/ Medical History: Denies: Hx Peritoneal Dialysis Musculoskeletal Medical History: Denies Hx Arthritis Past Surgical History: Reports: Hx Cholecystectomy, Other - Pilonidal cyst excision with fistulectomy - Immunizations Immunizations up to date: Yes Hx Diphtheria, Pertussis, Tetanus Vaccination: Yes <MIN RODRIGUEZ - Last Filed: 02/07/20 06:07> Review of Systems - Review of Systems Constitutional: See HPI EENT: No symptoms reported Cardiovascular: No symptoms reported Respiratory: No symptoms reported Gastrointestinal: See HPI Genitourinary: No symptoms reported Musculoskeletal: No symptoms reported Skin: No symptoms reported Neurological/Psychological: No symptoms reported -: Yes All other systems reviewed and negative <MIN RODRIGUEZ - Last Filed: 02/07/20 06:07> Physical Exam <MIN RODRIGUEZ - Last Filed: 02/07/20 06:07> - Vital signs Vitals: Temp Pulse Resp BP Pulse Ox 97.4 F 68 18 103/63 95 02/07/20 03:04 02/07/20 03:04 02/07/20 03:04 02/07/20 03:04 02/07/20 03:04 - Notes Notes: This is a 40-year-old male who appears his stated age in a moderate amount of distress. He is laying in the left lateral recumbent position, grasping his abdomen. Vital signs reviewed, please refer to chart. Head is normocephalic, atraumatic. Pupils equal round, reactive to light. Neck is supple without meningismus. Heart is regular rate and rhythm. Lungs are clear to auscultation bilaterally. Abdomen is soft, moderate epigastric and left upper quadrant tenderness without rebound or guarding, normoactive bowel sounds throughout. E xtremities without cyanosis, clubbing. Posterior calves are nontender. Peripheral pulses are equal. Skin is warm and moist. Patient is awake, alert, neurological exam is nonfocal. (MIN RODRIGUEZ) Course - Laboratory Result Diagrams: 02/07/20 04:22 02/07/20 04:22 <MIN RODRIGUEZ - Last Filed: 02/07/20 06:07> - Laboratory Result Diagrams: 02/07/20 04:22 02/07/20 04:22 - Diagnostic Test Radiology reviewed: Image reviewed, Reports reviewed <ARIELA SCHERER - Last Filed: 02/07/20 07:27> - Re-evaluation Re-evalutation: 02/07/20 05:07 Patient presents to the emergency department for evaluation. Laboratory investigations were ordered based on chief complaint, as well as IV fluids. On evaluation I did note that the patient was in significant distress, so pain and nausea medications were ordered. The patient evidently had been treated in the past with a GI cocktail with some relief. I did order IV Pepcid, but I am incl ined to order CT scan of the abdomen and pelvis before given any oral medications. He is currently stable, we will continue to monitor. 02/07/20 05:34 Patient's lipase is over 22,000. He is kept n.p.o. Patient notified. CT scan pending. Patient will be admitted, etiology of pancreatitis hopefully determined on CT scan. He is currently stable. (MIN RODRIGUEZ) 02/07/20 07:25 I received this patient in turnover from Dr. Rodriguez. Patient CT returned showing interstitial pancreatitis. Laboratories are consistent with this. I does reevaluated the patient now he is hemodynamically stable. He is resting comfortably and says his pain is under control currently. I will start some more IV fluids and the patient will be admitted to the hospitalist. (ARIELA PALOMO) - Vital Signs Vital signs: Temp Pulse Resp BP Pulse Ox 98.3 F 71 16 131/72 H 96 02/07/20 06:54 02/07/20 06:54 02/07/20 06:54 02/07/20 06:54 02/07/20 06:54 - Laboratory Laboratory results interpreted by me: 02/07/20 02/07/20 02/07/20 04:22 04:22 05:55 WBC 14.9 H Seg Neuts % (Manual) 91 H Lymphocytes % (Manual) 5 L Abs Neuts (Manual) 13.6 H Glucose 216 H Total Bilirubin 3.5 H Direct Bilirubin 2.2 H AST 324 H ALT 274 H Alkaline Phosphatase 138 H Lipase 49862.3 H Urine Glucose (UA) 50 H Urine Urobilinogen 4.0 H Discharge <MIN RODRIGUEZ - Last Filed: 02/07/20 06:07> - Discharge Admitting Provider: Aylin (Hospitalist) Unit Admitted: Medical Floor <ARIELA SCHERER - Last Filed: 02/07/20 07:27> - Discharge Clinical Impression: Acute pancreatitis Qualifiers: Pancreatitis type: other Acute pancreatitis complication: no infection or necrosis Qualified Code(s): K85.80 - Other acute pancreatitis without necrosis or infection Condition: Fair Disposition: ADMITTED INPATIENT Referrals: VALERIA SNYDER PA-C [Primary Care Provider] - Follow up as needed
--- NOTE | 2020-02-07 06:40 | RADIOLOGY REPORT (SQ) ---
EXAM DESCRIPTION: CT ABDOMEN PELVIS WITH IV CONTRAST COMPLETED DATE/TME: 02/07/2020 05:59 CLINICAL HISTORY: abdominal pain. CREAT 0.86 COMPARISON: None Available. TECHNIQUE: CT of the abdomen and pelvis performed following IV administration of 100 mL Omnipaque 350. FINDINGS: Lung Bases: Minimal bibasilar opacities likely represent atelectasis. Bones: Endplate spondylosis and facet arthropathy of the visualized spine. Abdomen: Liver: The liver has normal size and decreased density. No intrahepatic biliary dilatation. Gallbladder: Prior cholecystectomy. Spleen, Pancreas, and Adrenal Glands: Edema of the pancreas with peripancreatic inflammatory change and ill-defined free fluid. No well-circumscribed peripancreatic fluid collection. Kidneys: No hydronephrosis or obstructing calculus. There are small bilateral renal cysts. Vasculature: Aortoiliac atherosclerosis. IVC is unremarkable. The portal vein is patent. The proximal visceral and renal arteries are patent. Stomach: The stomach and duodenum have normal course. Mild likely reactive wall thickening of the duodenum. Other: No free intraperitoneal air. Pelvis: Bladder: Urinary bladder is unremarkable. Bowel: No dilated loops of large or small bowel. Appendix: Normal appendix. Pelvis: Prostate is not enlarged. IMPRESSION: 1. Findings compatible with acute interstitial pancreatitis. 2. Hepatic steatosis. This exam was performed according to our departmental dose-optimization program, which includes automated exposure control, adjustment of the mA and/or kV according to patient size and/or use of iterative reconstruction technique.
[2020-02-07 07:19] LABS: APPEARANCE,URINE CLEAR; BILIRUBIN,URINE NEGATIVE (NEGATIVE); COLOR,URINE YELLOW; GLUCOSE, URINE 50 mg/dL (NEGATIVE); KETONES,URINE NEGATIVE (NEGATIVE); LEUKOCYTE ESTERASE,URINE NEGATIVE (NEGATIVE); NITRITE,URINE NEGATIVE (NEGATIVE); PROTEIN,URINE NEGATIVE (NEGATIVE); URINE SPECIFIC GRAVITY 1.009
[2020-02-07] MEDS ORDERED: DEXTROSE 40% GEL 15 GM TUBE PO PRN ×2 (09:09)
[2020-02-07] MEDS ORDERED: MAG HYDROX/AL HYDROX/SIMETH SUSP 30 ML UDCUP PO PRN (09:09)
[2020-02-07] MEDS ORDERED: GLUCAGON,HUMAN RECOMB 1 MG INJ SUBCUT PRN (09:09)
[2020-02-07] MEDS ORDERED: DEXTROSE 50%-WATER 25 GM/50 ML DISP.SYRIN IV PRN ×2 (09:09)
[2020-02-07] MEDS: RINGERS SOLUTION,LACTATED 1,000 ML IV PRN ×3 (09:52→21:35)
[2020-02-07] MEDS: FAMOTIDINE INJ/PF 20 MG/2 ML SDV IV SCH ×2 (09:52→21:27)
--- NOTE | 2020-02-07 10:40 | PDOC H&P ---
History of Present Illness Admission Date/PCP: 02/07/20 07:32 VALERIA SNYDER PA-C Patient complains of: Abdominal pain nausea and vomiting History of Present Illness: GERMAN PARK is a 40 year old male with past medical history of type 2 diabetes, hypertension and hyperlipidemia who underwent laparoscopic cholecystectomy last month. Since then he has to prior episodes of abdominal pain. One was 2 weeks ago and the second was last week. Today is the worst of the 3. Review of studies from the January 23 visit reveals a normal lipase, normal white blood cell count and ultrasound study that shows no evidence of pancreatitis. He reports several days of increasing abdominal pain with nausea and vomiting. He states he feels bloated. There is no specific relation to food. He denies fever and chills. The discomfort would wax and wane previously but now it is severe and unrelenting. It is exacerbated by changes in position but there is constant pain. Lipase is 22,139 with elevated transaminases and elevated bilirubin. White blood cell count is slightly elevated at 14.9. Patient will be admitted for IV fluids. He will be kept n.p.o. Will use Accu- Cheks and sliding scale for his diabetes. Past Medical History Cardiac Medical History: Reports: Hyperlipidema, Hypertension Denies: Coronary Artery Disease, Myocardial Infarction Pulmonary Medical History: Reports: Sleep Apnea - Central sleep apnea Denies: Asthma, Bronchitis, Chronic Obstructive Pulmonary Disease (COPD), Pneumonia Neurological Medical History: Denies: Seizures Endocrine Medical History: Reports: Diabetes Mellitus Type 2 Musculoskeltal Medical History: Denies: Arthritis Hematology: Denies: Anemia Past Surgical History Past Surgical History: Reports: Cholecystectomy, Other - Pilonidal cyst excision with fistulectomy Social History Information Source: Patient, [facility] Records Lives with: Spouse/Significant other Smoking Status: Never Smoker Electronic Cigarette use?: No Frequency of Alcohol Use: None Hx Recreational Drug Use: No Hx Prescription Drug Abuse: No - Advance Directive Resuscitation Status: Full Code Surrogate healthcare decision maker:: Patient's would be the next in line for making medical decision Family History Family History: CVA Parental Family History Reviewed: Yes Children Family History Reviewed: Yes Sibling(s) Family History Reviewed.: Yes Medication/Allergy Home Medications: Lisinopril [Prinivil 40 mg Tablet] 40 mg PO DAILY 07/07/18 Atorvastatin Calcium [Lipitor 40 mg Tablet] 40 mg PO QHS 12/28/19 Pioglitazone HCl [Actos] 30 mg PO DAILY 12/28/19 Metformin HCl [Glucophage 500 mg Tablet] 2,000 mg PO QHS 02/07/20 Metoprolol Succinate [Toprol Xl 50 mg Tab.sr] 50 mg PO DAILY 02/07/20 Omeprazole 20 mg PO DAILY 02/07/20 Allergies/Adverse Reactions: Sulfa (Sulfonamide Antibiotics) Allergy (Severe, Verified 02/07/20 09:08) Hives Review of Systems All systems: reviewed and no additional remarkable complaints except as stated Constitutional: PRESENT: anorexia Gastrointestinal: PRESENT: abdominal pain, nausea, vomiting Physical Exam Vital Signs: Temp Pulse Resp BP Pulse Ox 98.3 F 71 16 131/72 H 96 02/07/20 06:54 02/07/20 06:54 02/07/20 06:54 02/07/20 06:54 02/07/20 06:54 Intake & Output 02/06/20 02/07/20 02/08/20 06:59 06:59 06:59 Intake Total 1000 1000 Balance 1000 1000 Weight 113.398 kg General appearance: PRESENT: cooperative, severe distress, well-developed, well- nourished Head exam: PRESENT: atraumatic, normocephalic Eye exam: PRESENT: conjunctival injection, EOMI, PERRLA, scleral icterus. ABSENT: nystagmus, periorbital swelling Ear exam: PRESENT: normal external ear exam. ABSENT: bleeding, drainage Teeth exam: PRESENT: poor dentation Neck exam: ABSENT: carotid bruit, JVD, lymphadenopathy, tenderness Respiratory exam: PRESENT: clear to auscultation adolph, symmetrical, unlabored. ABSENT: accessory muscle use, prolonged expiratory phas, rales, rhonchi, tachypnea, wheezes Cardiovascular exam: PRESENT: +S1, +S2. ABSENT: bradycardia, diastolic murmur, irregular rhythm, systolic murmur, tachycardia Pulses: PRESENT: normal radial pulses, normal dorsalis pedis pul GI/Abdominal exam: PRESENT: hypoactive bowel sounds, soft, tenderness - Severe tenderness mostly in the epigastric area but also across the upper abdomen. ABSENT: distended, guarding Rectal exam: PRESENT: deferred Gentrourinary exam: ABSENT: indwelling catheter Extremities exam: PRESENT: full ROM. ABSENT: calf tenderness, joint swelling, pedal edema Musculoskeletal exam: PRESENT: ambulatory, full ROM, normal inspection. ABSENT: deformity, dislocation Neurological exam: PRESENT: alert, awake, oriented to person, oriented to place, oriented to time, oriented to situation, CN II-XII grossly intact. ABSENT: altered, motor sensory deficit Psychiatric exam: PRESENT: appropriate affect - Affect reflects his significant discomfort. ABSENT: agitated, anxious Focused psych exam: ABSENT: delusional, paranoid, restlessness Skin exam: PRESENT: other - Scattered small red papules on the legs. No purulent drainage. Patient states that he gets these on occasion. Results Laboratory Results: 02/07/20 04:22 02/07/20 04:22 02/07/20 02/07/20 02/07/20 04:22 04:22 04:22 WBC 14.9 H RBC 4.71 Hgb 14.4 Hct 42.5 MCV 90 MCH 30.7 MCHC 34.0 RDW 12.7 Plt Count 198 Seg Neutrophils % Not Reportable Sodium 140.0 Potassium 3.7 Chloride 102 Carbon Dioxide 30 Anion Gap 8 BUN 12 Creatinine 0.86 Est GFR ( Amer) > 60 Glucose 216 H Calcium 9.6 Total Bilirubin 3.5 H AST 324 H Alkaline Phosphatase 138 H Total Protein 7.2 Albumin 4.4 Triglycerides 85 Lipase 77262.3 H Urine Color Urine Appearance Urine pH Ur Specific Winter Urine Protein Urine Glucose (UA) Urine Ketones Urine Blood Urine Nitrite Ur Leukocyte Esterase Urine WBC (Auto) Urine RBC (Auto) 02/07/20 05:55 WBC RBC Hgb Hct MCV MCH MCHC RDW Plt Count Seg Neutrophils % Sodium Potassium Chloride Carbon Dioxide Anion Gap BUN Creatinine Est GFR ( Amer) Glucose Calcium Total Bilirubin AST Alkaline Phosphatase Total Protein Albumin Triglycerides Lipase Urine Color YELLOW Urine Appearance CLEAR Urine pH 6.0 Ur Specific Winter 1.009 Urine Protein NEGATIVE Urine Glucose (UA) 50 H Urine Ketones NEGATIVE Urine Blood NEGATIVE Urine Nitrite NEGATIVE Ur Leukocyte Esterase NEGATIVE Urine WBC (Auto) 2 Urine RBC (Auto) 0 Impressions: Abdomen/Pelvis CT 02/07/20 05:04 IMPRESSION: 1. Findings compatible with acute interstitial pancreatitis. 2. Hepatic steatosis. This exam was performed according to our departmental dose-optimization program, which includes automated exposure control, adjustment of the mA and/or kV according to patient size and/or use of iterative reconstruction technique. Assessment and Plan - Diagnosis (1) Abdominal pain Qualifiers: Abdominal location: epigastric Qualified Code(s): R10.13 - Epigastric pain Is this a current diagnosis for this admission?: Yes (2) Nausea and vomiting Qualifiers: Vomiting type: unspecified Vomiting Intractability: non-intractable Qualified Code(s): R11.2 - Nausea with vomiting, unspecified Is this a current diagnosis for this admission?: Yes (3) Hypertension Qualifiers: Hypertension type: essential hypertension Qualified Code(s): I10 - Esse ntial (primary) hypertension Is this a current diagnosis for this admission?: Yes (4) Hypercholesterolemia Is this a current diagnosis for this admission?: Yes (5) Hyperglycemia due to type 2 diabetes mellitus Qualifiers: Diabetes mellitus salvage determiner insulin use: without salvage determiner use Qualified Code(s): E11.65 - Type 2 diabetes mellitus with hyperglycemia Is this a current diagnosis for this admission?: Yes (6) Acute pancreatitis Qualifiers: Pancreatitis type: other Acute pancreatitis complication: no infection or necrosis Qualified Code(s): K85.80 - Other acute pancreatitis without necrosis or infection Is this a current diagnosis for this admission?: Yes (7) Central sleep apnea Is this a current diagnosis for this admission?: Yes - Plan Summary Summary: (1) Abdominal pain Qualifiers: Abdominal location: epigastric Qualified Code(s): R10.13 - Epigastric pain (2) Nausea and vomiting Qualifiers: Vomiting type: unspecified Vomiting Intractability: non-intractable Qualified Code(s): R11.2 - Nausea with vomiting, unspecified (3) Hypertension Qualifiers: Hypertension type: essential hypertension Qualified Code(s): I10 - Essential (primary) hypertension (4) Hypercholesterolemia Is this a current diagnosis for this admission?: Yes (5) Hyperglycemia due to type 2 diabetes mellitus Qualifiers: Diabetes mellitus salvage determiner insulin use: without salvage determiner use Qualified Co de(s): E11.65 - Type 2 diabetes mellitus with hyperglycemia (6) Acute pancreatitis Qualifiers: Pancreatitis type: other Acute pancreatitis complication: no infection or necrosis Qualified Code(s): K85.80 - Other acute pancreatitis without necrosis or infection (7) Central sleep Apnea 02/07/2020 Pancreatitis-n.p.o. at this time. Aggressive IV fluids. Morphine for analgesia. Patient does not have high triglycerides. There is no evidence of ductal dilatation. Unsure of the etiology. Abdominal pain secondary to pancreatitis-IV analgesia Nausea and vomiting secondary to pancreatitis-antiemetics and IV fluids Hypertension-hold metoprolol and lisinopril at this time. We will add back based on vital signs. Hypercholesterolemia-triglycerides are only 85 we will repeat lipid panel. Hold atorvastatin at this time. Diabetes-hold Metformin and Actos. Accu-Cheks every 6 hours with sliding scale insulin Sleep apnea-the patient's will bring in his CPAP machine. - Time Time Spent with patient: 35 or more minutes Medications reviewed and adjusted accordingly: Yes Anticipated Discharge Disposition: Home, Self Care Anticipated Discharge Timeframe: Unknown - Inpatient Certification Based on my medical assessment, after consideration of the patient's comorbidities, presenting symptoms, or acuity I expect that the services needed warrant INPATIENT care.: Yes I certify that my determination is in accordance with my understanding of Medicare's requirements for reasonable and necessary INPATIENT services [42 CFR 412.3e].: Yes Medical Necessity: Need Close Monitoring Due to Risk of Patient Decompensation, Need For IV Fluids, Need for Pain Control, Risk of Complication if Not Cared For in Hospital Post Hospital Care: D/C or Transfer Summary
[2020-02-07] MEDS: ONDANSETRON HCL INJ/PF 4 MG/2 ML SDV IV PRN ×3 (11:37→21:30)
[2020-02-07] MEDS: MORPHINE SULFATE 10 MG/ML INJ IV PRN ×3 (11:37→21:29)
[2020-02-07] MEDS: INSULIN REG, HUMAN 100 UNIT/ML 3 ML VIAL (PYX) SUBCUT SCH ×3 (11:38→23:18)
[2020-02-07] MEDS: HEPARIN SOD (PORCINE) 5,000 UNIT/ML 1 ML VIAL SUBCUT SCH ×2 (14:42→21:29)
[2020-02-07 19:47] LABS: ALBUMIN 3.8 g/dL (3.5-5.0); ALKALINE PHOSPHATASE 114 U/L (38-126); ANION GAP 8 (5-19); ASPARTATE AMINO TRANSFERASE 140 U/L (17-59); BILIRUBIN,DIRECT 0.2 mg/dL (0.0-0.4); BLOOD UREA NITROGEN 11 mg/dL (7-20); CARBON DIOXIDE 31 mmol/L (22-30); CHLORIDE 100 mmol/L (98-107); GLUCOSE 134 mg/dL (75-110); TOTAL PROTEIN 6.2 g/dL (6.3-8.2)
[2020-02-07 20:02] LABS: BILIRUBIN,TOTAL 0.9 mg/dL (0.2-1.3)
[2020-02-08] MEDS: MORPHINE SULFATE 10 MG/ML INJ IV PRN ×3 (04:50→20:14)
[2020-02-08] MEDS: ONDANSETRON HCL INJ/PF 4 MG/2 ML SDV IV PRN ×3 (04:50→20:14)
[2020-02-08 04:55] LABS: ABSOLUTE LYMPHOCYTES (AUTO) 1.2 10^3/uL (0.5-4.7); ABSOLUTE MONOCYTES (AUTO) 1.8 10^3/uL (0.1-1.4); ABSOLUTE NEUT (AUTO) 16.5 10^3/uL (1.7-8.2); BASOPHILS % (AUTO) 0.1 % (0-2); HEMATOCRIT 42.8 % (37.9-51.0); HEMOGLOBIN 14.6 g/dL (13.5-17.0); LYMPHOCYTES % (AUTO) 6.2 % (13-45); MEAN CORPUSCULAR HEMOGLOBIN 30.9 pg (27.0-33.4); MEAN CORPUSCULAR HGB CONC 34.2 g/dL (32.0-36.0); MEAN CORPUSCULAR VOLUME 90 fl (80-97); MONOCYTES % (AUTO) 9.1 % (3-13); PLATELET COUNT 184 10^3/uL (150-450); RED BLOOD COUNT 4.73 10^6/uL (4.35-5.55); RED CELL DISTRIBUTION WIDTH 13.3 % (11.5-14.0); SEGMENTED NEUTROPHILS % (AUTO) 84.6 % (42-78); TOTAL CELLS COUNTED % (AUTO) 100 %; WHITE BLOOD COUNT 19.5 10^3/uL (4.0-10.5)
[2020-02-08 05:18] LABS: ALBUMIN 3.9 g/dL (3.5-5.0); ALKALINE PHOSPHATASE 109 U/L (38-126); ANION GAP 7 (5-19); ASPARTATE AMINO TRANSFERASE 94 U/L (17-59); BILIRUBIN,DIRECT 0.2 mg/dL (0.0-0.4); BILIRUBIN,TOTAL 1.1 mg/dL (0.2-1.3); BLOOD UREA NITROGEN 11 mg/dL (7-20); CALCIUM 9.1 mg/dL (8.4-10.2); CARBON DIOXIDE 32 mmol/L (22-30); CHLORIDE 98 mmol/L (98-107); GLUCOSE 124 mg/dL (75-110); POTASSIUM 3.6 mmol/L (3.6-5.0); TOTAL PROTEIN 6.4 g/dL (6.3-8.2)
[2020-02-08] MEDS: HEPARIN SOD (PORCINE) 5,000 UNIT/ML 1 ML VIAL SUBCUT SCH ×3 (05:35→21:07)
[2020-02-08] MEDS: INSULIN REG, HUMAN 100 UNIT/ML 3 ML VIAL (PYX) SUBCUT SCH ×4 (06:18→21:36)
[2020-02-08] MEDS: FAMOTIDINE INJ/PF 20 MG/2 ML SDV IV SCH (09:03)
[2020-02-08] MEDS: RINGERS SOLUTION,LACTATED 1,000 ML IV PRN ×2 (09:03→15:10)
[2020-02-08] MEDS: ACETAMINOPHEN 325 MG TABLET PO PRN (11:08)
--- NOTE | 2020-02-08 14:21 | RADIOLOGY REPORT (SQ) ---
EXAM DESCRIPTION: CHEST SINGLE VIEW IMAGES COMPLETED DATE/TIME: 02/08/2020 2:04 pm REASON FOR STUDY: Fever of unknown origin COMPARISON: 07/07/2018 EXAM PARAMETERS: NUMBER OF VIEWS: One view. TECHNIQUE: Single frontal radiographic view of the chest acquired. RADIATION DOSE: NA LIMITATIONS: None. FINDINGS: LUNGS AND PLEURA: Mild left basilar patchy opacities. No pleural effusion or pneumothorax . MEDIASTINUM AND HILAR STRUCTURES: No masses. Contour normal. HEART AND VASCULAR STRUCTURES: Heart normal in size. Normal vasculature. BONES: No acute findings. HARDWARE: None in the chest. OTHER: No other significant finding. IMPRESSION: Mild patchy left basilar opacities, possibly atelectasis or pneumonia. TECHNICAL DOCUMENTATION: JOB ID: [id number] 2010 [employer]- All Rights Reserved Reading location - IP/workstation name: [email or web address]
[2020-02-08] MEDS ORDERED: RINGERS SOLUTION,LACTATED 1,000 ML IV PRN (15:21)
--- NOTE | 2020-02-08 15:29 | PDOC PROGRESS REPORT ---
Subjective Date:: 02/08/20 Subjective:: Patient reports that he feels better today. His lipase went from 22,000 1800. He still has some epigastric discomfort but now has developed some right lower quadrant pain. He also spiked a fever and his white blood cell count has gone up. Reason For Visit: ACUTE PANCREATITIS, ABDOMINAL PAIN, VAUSEA AND VO- Physical Exam Vital Signs: Temp Pulse Resp BP Pulse Ox 100.6 F H 90 18 148/84 H 91 L 02/08/20 13:19 02/08/20 10:55 02/08/20 10:55 02/08/20 10:55 02/08/20 10:55 Intake & Output 02/07/20 02/08/20 02/09/20 06:59 06:59 06:59 Intake Total 1000 4000 1000 Output Total 300 Balance 1000 4000 700 Weight 113.398 kg 107.7 kg General appearance: PRESENT: cooperative, mild distress, well-developed, other - Mild facial flushing Head exam: PRESENT: atraumatic, normocephalic Ear exam: PRESENT: normal external ear exam. ABSENT: bleeding, drainage Respiratory exam: PRESENT: clear to auscultation adolph, symmetrical, unlabored. ABSENT: rales, rhonchi, tachypnea, wheezes Cardiovascular exam: PRESENT: RRR, +S1, +S2. ABSENT: bradycardia, diastolic murmur, irregular rhythm, systolic murmur, tachycardia GI/Abdominal exam: PRESENT: hypoactive bowel sounds, soft, tenderness - Tender in epigastrium and right lower quadrant. No palpable masses.. ABSENT: distended, guarding, mass Rectal exam: PRESENT: deferred Gentrourinary exam: ABSENT: indwelling catheter Extremities exam: ABSENT: pedal edema Neurological exam: PRESENT: alert, awake, oriented to person, oriented to place, oriented to time, oriented to situation, CN II-XII grossly intact, motor sensory deficit. ABSENT: altered Psychiatric exam: PRESENT: appropriate affect. ABSENT: agitated, anxious Focused psych exam: ABSENT: delusional, paranoid, restlessness Results Laboratory Results: 02/08/20 04:08 02/08/20 04:08 02/07/20 02/08/20 02/08/20 19:04 04:08 04:08 WBC 19.5 H RBC 4.73 Hgb 14.6 Hct 42.8 MCV 90 MCH 30.9 MCHC 34.2 RDW 13.3 Plt Count 184 Seg Neutrophils % 84.6 H Sodium 138.7 137.1 Potassium 4.0 3.6 Chloride 100 98 Carbon Dioxide 31 H 32 H Anion Gap 8 7 BUN 11 11 Creatinine 0.69 0.68 Est GFR ( Amer) > 60 > 60 Glucose 134 H 124 H Calcium 9.0 9.1 Magnesium 1.5 L 1.5 L Total Bilirubin 0.9 D 1.1 AST 140 H 94 H Alkaline Phosphatase 114 109 Total Protein 6.2 L 6.4 Albumin 3.8 3.9 Lipase 1838.7 H Impressions: Abdomen/Pelvis CT 02/07/20 05:04 IMPRESSION: 1. Findings compatible with acute interstitial pancreatitis. 2. Hepatic steatosis. This exam was performed according to our departmental dose-optimization program, which includes automated exposure control, adjustment of the mA and/or kV according to patient size and/or use of iterative reconstruction technique. Chest X-Ray 02/08/20 00:00 IMPRESSION: Mild patchy left basilar opacities, possibly atelectasis or pneumonia. Assessment and Plan - Diagnosis (1) Abdominal pain Qualifiers: Abdominal location: epigastric Qualified Code(s): R10.13 - Epigastric pain Is this a current diagnosis for this admission?: Yes (2) Nausea and vomiting Qualifiers: Vomiting type: unspecified Vomiting Intractability: non-intractable Qualified Code(s): R11.2 - Nausea with vomiting, unspecified Is this a current diagnosis for this admission?: Yes (3) Hypertension Qualifiers: Hypertension type: essential hypertension Qualified Code(s): I10 - Essential (primary) hypertension Is this a current diagnosis for this admission?: Yes (4) Hypercholesterolemia Is this a current diagnosis for this admission?: Yes (5) Hyperglycemia due to type 2 diabetes mellitus Qualifiers: Diabetes mellitus keno terminal operator insulin use: without keno terminal operator use Qualified Code(s): E11.65 - Type 2 diabetes mellitus with hyperglycemia Is this a current diagnosis for this admission?: Yes (6) Acute pancreatitis Qualifiers: Pancreatitis type: other Acute pancreatitis complication: no infection or necrosis Qualified Code(s): K85.80 - Other acute pancreatitis without necrosis or infection Is this a current diagnosis for this admission?: Yes (7) Central sleep apnea Is this a current diagnosis for this admission?: Yes - Plan Summary Summary: (1) Abdominal pain Qualifiers: Abdominal location: epigastric Qualified Code(s): R10.13 - Epigastric pain (2) Nausea and vomiting Qualifiers: Vomiting type: unspecified Vomiting Intractability: non-intractable Qualified Code(s): R11.2 - Nausea with vomiting, unspecified (3) Hypertension Qualifiers: Hypertension type: essential hypertension Qualified Code(s): I10 - Essential (primary) hypertension (4) Hypercholesterolemia Is this a current diagnosis for this admission?: Yes (5) Hyperglycemia due to type 2 diabetes mellitus Qualifiers: Diabetes mellitus assisted insulin use: without assisted use Qualified Code(s): E11.65 - Type 2 diabetes mellitus with hyperglycemia (6) Acute pancreatitis Qualifiers: Pancreatitis type: other Acute pancreatitis complication: no infection or necrosis Qualified Code(s): K85.80 - Other acute pancreatitis without necrosis or infection (7) Central sleep Apnea 02/07/2020 Pancreatitis-n.p.o. at this time. Aggressive IV fluids. Morphine for analgesia. Patient does not have high triglycerides. There is no evidence of ductal dilatation. Unsure of the etiology. Abdominal pain secondary to pancreatitis-IV analgesia Nausea and vomiting secondary to pancreatitis-antiemetics and IV fluids Hypertension-hold metoprolol and lisinopril at this time. We will add back based on vital signs. Hypercholesterolemia-triglycerides are only 85 we will repeat lipid panel. Hold atorvastatin at this time. Diabetes-hold Metformin and Actos. Accu-Cheks every 6 hours with sliding scale insulin Sleep apnea-the patient's will bring in his CPAP machine. 02/08/2020 Patient now with fever and his white count increased despite a significant decrease in his lipase level. He also has right lower quadrant pain which she did not have previously. The patient was assessed by Dr. Willis. We discussed the case afterwards. Pancreatitis-the patient does have a significant pancreatitis. The degree of inflammation certainly can cause an elevated white count and fever. I am going to discontinue the antibiotic as the risk of complications such as C. difficile outweighs any benefit. The white blood cell count increased. But this certainly could be a reaction to the inflammation in the pancreatitis. We will recheck the count tomorrow. The lipase decreased significantly but this sometimes has no direct bearing on the patient's overall condition. Accu-Cheks have been not requiring sliding scale insulin. Will decrease Accu- Cheks and sliding scale dosing to every 12 hours. Once the patient is taking meals will adjust to mealtime. Continue CPAP for sleep apnea. The patient is tolerating ice chips. He can have intermittent sips of clears as desired. No nausea today. - Time Time Spent with patient: 15-24 minutes Medications reviewed and adjusted accordingly: Yes Anticipated Discharge Disposition: Home, Self Care Anticipated Discharge Timeframe: within 72 hours
[2020-02-08] MEDS ORDERED: CEFEPIME HCL 2 GM in DEXTROSE 5%-WATER 50 ML IV ONE (16:00)
--- NOTE | 2020-02-08 16:16 | PDOC CONSULTATION ---
Consultation Consult Date: 02/08/20 Provider Consulted: SURGICAL SURGICALIST MD Consult reason:: Acute pancreatitis, recent gallbladder surgery History of Present Illness Admission Date/PCP: 02/07/20 07:32 VALERIA SNYDER PA-C History of Present Illness: GERMAN PARK is a 40 year old male seen at the request of the hospitalist service. This patient is approximately 1 month status post laparoscopic cholecystectomy for symptomatic gallstones. He presented to the hospital with sharp, stabbing right upper quadrant/epigastric pain. It began approximately 2 to 3 days ago, and worsened significantly. He does not know of any specific inciting event. He has never had symptoms like this before. He does report fevers and chills, nausea and vomiting. He has tolerated sips of water and ice chips. He continues to complain of right-sided abdominal pain. He denies any hematochezia, hematemesis, melena, headache, shortness of breath, chest pain, dizziness, orthostasis, fatigue, blurry vision. Past Medical History Cardiac Medical History: Reports: Hyperlipidema, Hypertension Denies: Coronary Artery Disease, Myocardial Infarction Pulmonary Medical History: Reports: Sleep Apnea - Central sleep apnea Denies: Asthma, Bronchitis, Chronic Obstructive Pulmonary Disease (COPD), Pneumonia Neurological Medical History: Denies: Seizures Endocrine Medical History: Reports: Diabetes Mellitus Type 2 Musculoskeltal Medical History: Denies: Arthritis Psychiatric Medical History: Denies: Depression Hematology: Denies: Anemia Past Surgical History Past Surgical History: Reports: Cholecystectomy, Other - Pilonidal cyst excision with fistulectomy Social History Lives with: Spouse/Significant other Smoking Status: Never Smoker Electronic Cigarette use?: No Frequency of Alcohol Use: None Hx Recreational Drug Use: No Hx Prescription Drug Abuse: No - Advance Directive Resuscitation Status: Full Code Family History Family History: CVA Parental Family History Reviewed: Yes Children Family History Reviewed: Yes Sibling(s) Family History Reviewed.: Yes Medication/Allergy Home Medications: Lisinopril [Prinivil 40 mg Tablet] 40 mg PO DAILY 07/07/18 Atorvastatin Calcium [Lipitor 40 mg Tablet] 40 mg PO QHS 12/28/19 Pioglitazone HCl [Actos] 30 mg PO DAILY 12/28/19 Metformin HCl [Glucophage 500 mg Tablet] 2,000 mg PO QHS 02/07/20 Metoprolol Succinate [Toprol Xl 50 mg Tab.sr] 50 mg PO DAILY 02/07/20 Omeprazole 20 mg PO DAILY 02/07/20 Allergies/Adverse Reactions: Sulfa (Sulfonamide Antibiotics) Allergy (Severe, Verified 02/07/20 09:08) Hives Review of Systems Constitutional: PRESENT: anorexia, chills, fatigue, fever(s). ABSENT: headache(s), weakness Eyes: ABSENT: visual disturbances Ears: ABSENT: hearing changes Nose, Mouth, and Throat: ABSENT: sore throat Cardiovascular: ABSENT: chest pain Respiratory: ABSENT: cough, dyspnea Gastrointestinal: PRESENT: abdominal pain, bloating, nausea, vomiting. ABSENT: hematemesis, hematochezia, melena Genitourinary: ABSENT: dysuria Musculoskeletal: PRESENT: back pain Integumentary: ABSENT: pruritus, rash Neurological: ABSENT: confusion, convulsions, dizziness Psychiatric: ABSENT: anxiety, depression Endocrine: ABSENT: cold intolerance, heat intolerance Hematologic/Lymphatic: ABSENT: easy bleeding, easy bruising Physical Exam Vital Signs: Temp Pulse Resp BP Pulse Ox 100.6 F H 90 18 148/84 H 91 L 02/08/20 13:19 02/08/20 10:55 02/08/20 10:55 02/08/20 10:55 02/08/20 10:55 Intake & Output 02/07/20 02/08/20 02/09/20 06:59 06:59 06:59 Intake Total 1000 4000 1000 Output Total 300 Balance 1000 4000 700 Weight 113.398 kg 107.7 kg General appearance: PRESENT: no acute distress, cooperative Head exam: PRESENT: atraumatic, normocephalic Eye exam: PRESENT: EOMI, PERRLA. ABSENT: scleral icterus Mouth exam: PRESENT: moist, neck supple Neck exam: ABSENT: meningismus, tenderness, thyromegaly, tracheal deviation Respiratory exam: PRESENT: unlabored. ABSENT: tachypnea Cardiovascular exam: ABSENT: tachycardia Vascular exam: PRESENT: normal capillary refill GI/Abdominal exam: PRESENT: distended - Mild, soft, tenderness - Mild to moderate tenderness in the right upper quadrant and epigastrium Rectal exam: PRESENT: deferred Extremities exam: ABSENT: clubbing Musculoskeletal exam: ABSENT: deformity Neurological exam: PRESENT: alert, awake, oriented to person, oriented to place, oriented to time, oriented to situation Psychiatric exam: ABSENT: agitated, anxious, depressed Focused psych exam: ABSENT: delusional Skin exam: ABSENT: cyanosis, erythema, jaundice Results Laboratory Results: 02/08/20 04:08 02/08/20 04:08 02/07/20 02/08/20 02/08/20 19:04 04:08 04:08 WBC 19.5 H RBC 4.73 Hgb 14.6 Hct 42.8 MCV 90 MCH 30.9 MCHC 34.2 RDW 13.3 Plt Count 184 Seg Neutrophils % 84.6 H Sodium 138.7 137.1 Potassium 4.0 3.6 Chloride 100 98 Carbon Dioxide 31 H 32 H Anion Gap 8 7 BUN 11 11 Creatinine 0.69 0.68 Est GFR ( Amer) > 60 > 60 Glucose 134 H 124 H Calcium 9.0 9.1 Magnesium 1.5 L 1.5 L Total Bilirubin 0.9 D 1.1 AST 140 H 94 H Alkaline Phosphatase 114 109 Total Protein 6.2 L 6.4 Albumin 3.8 3.9 Lipase 1838.7 H Impressions: Abdomen/Pelvis CT 02/07/20 05:04 IMPRESSION: 1. Findings compatible with acute interstitial pancreatitis. 2. Hepatic steatosis. This exam was performed according to our departmental dose-optimization program, which includes automated exposure control, adjustment of the mA and/or kV according to patient size and/or use of iterative reconstruction technique. Chest X-Ray 02/08/20 00:00 IMPRESSION: Mild patchy left basilar opacities, possibly atelectasis or pneumonia. Assessment & Plan - Diagnosis (1) Idiopathic acute pancreatitis Qualifiers: Acute pancreatitis complication: no infection or necrosis Qualified Code(s): K85.00 - Idiopathic acute pancreatitis without necrosis or infection Is this a current diagnosis for this admission?: Yes - Plan Summary Plan Summary: 40-year-old male with acute pancreatitis, currently of unknown origin. Patient has a history of cholecystectomy more than 1 month ago. He has no sign of biliary ductal dilatation, hyperbilirubinemia, or elevation of his alkaline phosphatase (which should be seen with an obstructive process of the biliary system). The patient does not take antipsychotics, has not taken recent antibiotics, and denies any alcohol consumption in several years. At this time, I am not sure as to the cause of his pancreatitis, however his CT scan is impressive. There is a large amount of inflammation around the head of the pancreas. I believe that his abdominal pain is related to his acute pancreatitis. I do not see any evidence for pancreatic necrosis on CT. Continue with supportive care, IV fluids, follow lab trends. Clinically, the patient feels that he is improved from yesterday. Hopefully this trend will continue. Certainly no surgical intervention is warranted at this time. Surgery will continue to follow this patient with you. Repeat labs tomorrow.
[2020-02-08 19:06] LABS: APPEARANCE,URINE CLEAR; BILIRUBIN,URINE NEGATIVE (NEGATIVE); COLOR,URINE STRAW; GLUCOSE, URINE NEGATIVE (NEGATIVE); KETONES,URINE 20 mg/dL (NEGATIVE); PROTEIN,URINE NEGATIVE (NEGATIVE); URINE SPECIFIC GRAVITY 1.008; UROBILINOGEN,URINE NEGATIVE mg/dL (<2.0)
[2020-02-08] MEDS ORDERED: PHENOL/SODIUM PHENOLATE 100 SPRAY/177 ML BOTTLE PO PRN (20:30)
[2020-02-08] MEDS ORDERED: CEFEPIME 2 GM/D5W RTU 2 GM/50 ML RTUPB IV SCH (22:00)
[2020-02-08] MEDS ORDERED: CEFEPIME HCL 2 GM in DEXTROSE 5%-WATER 50 ML IV SCH (22:00)
[2020-02-09] MEDS: ONDANSETRON HCL INJ/PF 4 MG/2 ML SDV IV PRN ×3 (05:13→22:03)
[2020-02-09] MEDS: MORPHINE SULFATE 10 MG/ML INJ IV PRN ×3 (05:13→22:02)
[2020-02-09] MEDS: PANTOPRAZOLE SODIUM 40 MG TABLET.DR PO SCH (05:13)
[2020-02-09] MEDS: HEPARIN SOD (PORCINE) 5,000 UNIT/ML 1 ML VIAL SUBCUT SCH ×3 (05:14→21:08)
[2020-02-09 05:53] LABS: HEMATOCRIT 44.8 % (37.9-51.0); HEMOGLOBIN 15.4 g/dL (13.5-17.0); MEAN CORPUSCULAR HEMOGLOBIN 30.8 pg (27.0-33.4); MEAN CORPUSCULAR HGB CONC 34.3 g/dL (32.0-36.0); MEAN CORPUSCULAR VOLUME 90 fl (80-97); RED BLOOD COUNT 4.99 10^6/uL (4.35-5.55); RED CELL DISTRIBUTION WIDTH 12.8 % (11.5-14.0)
[2020-02-09 06:03] LABS: ALBUMIN 3.9 g/dL (3.5-5.0); ALKALINE PHOSPHATASE 112 U/L (38-126); ANION GAP 14 (5-19); ASPARTATE AMINO TRANSFERASE 40 U/L (17-59); BILIRUBIN,DIRECT 0.2 mg/dL (0.0-0.4); BILIRUBIN,TOTAL 1.8 mg/dL (0.2-1.3); BLOOD UREA NITROGEN 9 mg/dL (7-20); CALCIUM 9.1 mg/dL (8.4-10.2); CARBON DIOXIDE 26 mmol/L (22-30); CHLORIDE 95 mmol/L (98-107); GLUCOSE 110 mg/dL (75-110); POTASSIUM 3.1 mmol/L (3.6-5.0); TOTAL PROTEIN 6.7 g/dL (6.3-8.2)
[2020-02-09 06:24] LABS: ABSOLUTE LYMPHOCYTES# (MANUAL) 1.5 10^3/uL (0.5-4.7); ABSOLUTE MONOCYTES # (MANUAL) 3.3 10^3/uL (0.1-1.4); BASOPHILS % (MANUAL) 0 % (0-2); EOSINOPHILS % (MANUAL) 0 % (0-6); LYMPHOCYTES % (MANUAL) 7 % (13-45); MONOCYTES % (MANUAL) 15 % (3-13); SEGMENTED NEUTROPHILS % (MAN) 78 % (42-78); TOTAL CELLS COUNTED 100
[2020-02-09 06:26] LABS: PLATELET CLUMPS PRESENT; PLATELET COMMENT ADEQUATE; PLATELET COUNT 167 10^3/uL (150-450); POLYCHROMASIA SLIGHT
[2020-02-09] MEDS: INSULIN REG, HUMAN 100 UNIT/ML 3 ML VIAL (PYX) SUBCUT SCH ×2 (10:21→22:02)
[2020-02-09] MEDS: METOPROLOL SUCCINATE 50 MG TAB.SR.24H PO SCH (10:22)
--- NOTE | 2020-02-09 10:27 | PDOC PROGRESS REPORT ---
Subjective Date:: 02/09/20 Subjective:: Patient complaining of diffuse abdominal discomfort, no nausea or vomiting Reason For Visit: ACUTE PANCREATITIS, ABDOMINAL PAIN, VAUSEA AND VO- Physical Exam Vital Signs: Temp Pulse Resp BP Pulse Ox 98.5 F 98 17 133/92 H 94 02/09/20 08:11 02/09/20 08:01 02/09/20 08:01 02/09/20 08:01 02/09/20 08:01 Intake & Output 02/08/20 02/09/20 02/10/20 06:59 06:59 06:59 Intake Total 4000 3080 Output Total 600 Balance 4000 2480 Weight 107.7 kg 107.7 kg General appearance: PRESENT: no acute distress, obese, thin Respiratory exam: PRESENT: clear to auscultation adolph Cardiovascular exam: PRESENT: RRR GI/Abdominal exam: PRESENT: rebound - Present, soft, tenderness - Usually tender Results Laboratory Results: 02/09/20 04:48 02/09/20 04:48 02/08/20 02/09/20 02/09/20 14:12 04:48 04:48 WBC 22.0 H RBC 4.99 Hgb 15.4 Hct 44.8 MCV 90 MCH 30.8 MCHC 34.3 RDW 12.8 Plt Count 167 Seg Neutrophils % Not Reportable Sodium 135.2 L Potassium 3.1 L Chloride 95 L Carbon Dioxide 26 Anion Gap 14 BUN 9 Creatinine 0.55 Est GFR ( Amer) > 60 Glucose 110 Calcium 9.1 Magnesium 1.6 Total Bilirubin 1.8 H AST 40 Alkaline Phosphatase 112 Total Protein 6.7 Albumin 3.9 Lipase 691.0 H Urine Color STRAW Urine Appearance CLEAR Urine pH 6.0 Ur Specific [place] 1.008 Urine Protein NEGATIVE Urine Glucose (UA) NEGATIVE Urine Ketones 20 H Urine Blood NEGATIVE Urine RBC (Auto) 0 Impressions: Abdomen/Pelvis CT 02/07/20 05:04 IMPRESSION: 1. Findings compatible with acute interstitial pancreatitis. 2. Hepatic steatosis. This exam was performed according to our departmental dose-optimization program, which includes automated exposure control, adjustment of the mA and/or kV according to patient size and/or use of iterative reconstruction technique. Chest X-Ray 02/08/20 00:00 IMPRESSION: Mild patchy left basilar opacities, possibly atelectasis or pneu monia. Assessment & Plan - Diagnosis (1) Abdominal pain Qualifiers: Abdominal location: epigastric Qualified Code(s): R10.13 - Epigastric pain (2) Acute pancreatitis Qualifiers: Pancreatitis type: other Acute pancreatitis complication: no infection or necrosis Qualified Code(s): K85.80 - Other acute pancreatitis without necrosis or infection - Time Anticipated Discharge Disposition: Home, Self Care Anticipated Discharge Timeframe: not yet - Plan Summary Plan Summary: Assessment: Post laparoscopic cholecystectomy for symptomatic cholelithiasis uneventful 1 month ago Acute pancreatitis which occurred 1 month postop, unknown cause (patient denies trauma, surgery or recently drinking alcohol, using new medications, recent infections, family history of pancreatitis) Lipase 691 White blood cell count 22,000, most likely reactive Bilirubin total 1.8 with normal direct bilirubin Abdomen demonstrates a soft abdomen is diffusely tender with rebound Plan: Obtain lipid profile MRCP Continue n.p.o. with sips of water
[2020-02-09 10:47] LABS: CHOLESTEROL 120.29 mg/dL (0-200); TRIGLYCERIDES 120 mg/dL (<150)
[2020-02-09 10:58] LABS: DIRECT LDL 53 mg/dL (<100)
--- NOTE | 2020-02-09 12:17 | RADIOLOGY REPORT (SQ) ---
EXAM DESCRIPTION: MRI ABDOMEN WITHOUT IMAGES COMPLETED DATE/TIME: 02/09/2020 11:03 am COMPARISON: CT abdomen and pelvis 02/07/2020. TECHNIQUE: Noncontrast MRCP. Source and MIP images reviewed. LIMITATIONS: None. FINDINGS: GALLBLADDER: Status post cholecystectomy. INTRAHEPATIC DUCTS: Nondilated. EXTRAHEPATIC DUCTS: Common duct is normal caliber. No dilatation of the pancreatic duct. No ductal filling defects noted. PANCREAS: Diffuse pancreatic enlargement with surrounding inflammatory change, consistent with acute pancreatitis as seen on prior CT. No focal fluid collection. No pancreatic mass. No pancreatic kristian lilibeth dilation. LIVER, SPLEEN, KIDNEYS, ADRENALS: No significant abnormality. VESSELS: No evidence of aneurysm. Grossly appropriate flow voids in the major vascular structures. LUNG BASES: Interval development of trace bilateral pleural effusions with compressive atelectasis at the lung bases. OTHER: Small amount of fluid in the pericolic gutters bilaterally. No focal drainable abscess. IMPRESSION: 1. Diffuse enlargement of the pancreas with surrounding peripancreatic fluid and small amount of asci kaley in the pericolic gutters, consistent with acute pancreatitis. No pancreatic pseudocyst. No unde rlying mass or evidence of pancreatic obstruction. 2. Interval development of trace bilateral pleural effusions which are likely reactive. Bibasilar at electasis/consolidation. 3. No evidence of choledocholithiasis or biliary obstruction. TECHNICAL DOCUMENTATION: JOB ID: [id number] 2010 [employer]- All Rights Reserved REASON FOR STUDY: Acute pancreatitis, 1 month post lap john paul, cause? Acute pancreatitis, 1 month post lap john paul, cause? Diarrhea, nausea, diffuse abdominal pain, abdomina l pain and swelling. Reading location - IP/workstation name: [email or web address]
--- NOTE | 2020-02-09 12:30 | PDOC PROGRESS REPORT ---
Subjective Date:: 02/09/20 Subjective:: Patient still with no appetite. He is tolerating some ice chips and sips of francisco er. Still with diffuse abdominal pain especially epigastrium and right abdomen. Reason For Visit: ACUTE PANCREATITIS, ABDOMINAL PAIN, VAUSEA AND VO- Physical Exam Vital Signs: Temp Pulse Resp BP Pulse Ox 99.7 F 104 H 15 143/86 H 92 02/09/20 11:05 02/09/20 11:05 02/09/20 11:05 02/09/20 11:05 02/09/20 11:05 Intake & Output 02/08/20 02/09/20 02/10/20 06:59 06:59 06:59 Intake Total 4000 3080 Output Total 600 Balance 4000 2480 Weight 107.7 kg 107.7 kg General appearance: PRESENT: cooperative, mild distress - Mild to moderate distress, well-developed Head exam: PRESENT: atraumatic, normocephalic Eye exam: PRESENT: conjunctiva pink. ABSENT: scleral icterus Ear exam: PRESENT: normal external ear exam. ABSENT: bleeding, drainage Mouth exam: PRESENT: moist, tongue midline Respiratory exam: PRESENT: clear to auscultation adolph, symmetrical, unlabored. ABSENT: rales, rhonchi, tachypnea, wheezes Cardiovascular exam: PRESENT: RRR, +S1, +S2. ABSENT: bradycardia, diastolic murmur, irregular rhythm, systolic murmur, tachycardia GI/Abdominal exam: PRESENT: hypoactive bowel sounds, soft, tenderness. ABSENT: distended Rectal exam: PRESENT: deferred Extremities exam: ABSENT: pedal edema Musculoskeletal exam: PRESENT: normal inspection Neurological exam: PRESENT: alert, awake, oriented to person, oriented to place, oriented to time, oriented to situation, CN II-XII grossly intact. ABSENT: altered Psychiatric exam: PRESENT: appropriate affect - Affect reflects his current clinical state. ABSENT: agitated, anxious Focused psych exam: ABSENT: delusional, paranoid, restlessness Results Laboratory Results: 02/09/20 04:48 02/09/20 04:48 02/08/20 02/09/20 02/09/20 14:12 04:48 04:48 WBC 22.0 H RBC 4.99 Hgb 15.4 Hct 44.8 MCV 90 MCH 30.8 MCHC 34.3 RDW 12.8 Plt Count 167 Seg Neutrophils % Not Reportable Sodium 135.2 L Potassium 3.1 L Chloride 95 L Carbon Dioxide 26 Anion Gap 14 BUN 9 Creatinine 0.55 Est GFR ( Amer) > 60 Glucose 110 Calcium 9.1 Magnesium 1.6 Total Bilirubin 1.8 H AST 40 Alkaline Phosphatase 112 Total Protein 6.7 Albumin 3.9 Triglycerides Cholesterol LDL Cholesterol Direct VLDL Cholesterol HDL Cholesterol Lipase 691.0 H Urine Color STRAW Urine Appearance CLEAR Urine pH 6.0 Ur Specific [place] 1.008 Urine Protein NEGATIVE Urine Glucose (UA) NEGATIVE Urine Ketones 20 H Urine Blood NEGATIVE Urine RBC (Auto) 0 02/09/20 04:48 WBC RBC Hgb Hct MCV MCH MCHC RDW Plt Count Seg Neutrophils % Sodium Potassium Chloride Carbon Dioxide Anion Gap BUN Creatinine Est GFR ( Amer) Glucose Calcium Magnesium Total Bilirubin AST Alkaline Phosphatase Total Protein Albumin Triglycerides 120 Cholesterol 120.29 LDL Cholesterol Direct 53 VLDL Cholesterol 24.0 HDL Cholesterol 40 Lipase Urine Color Urine Appearance Urine pH Ur Specific [place] Urine Protein Urine Glucose (UA) Urine Ketones Urine Blood Urine RBC (Auto) Impressions: Abdomen/Pelvis CT 02/07/20 05:04 IMPRESSION: 1. Findings compatible with acute interstitial pancreatitis. 2. Hepatic steatosis. This exam was performed according to our departmental dose-optimization program, which includes automated exposure control, adjustment of the mA and/or kV according to patient size and/or use of iterative reconstruction technique. Chest X-Ray 02/08/20 00:00 IMPRESSION: Mild patchy left basilar opacities, possibly atelectasis or pneumonia. Abdomen MRI 02/09/20 00:00 IMPRESSION: 1. Diffuse enlargement of the pancreas with surrounding peripancreatic fluid and small amount of ascites in the pericolic gutters, consistent with acute pancreatitis. No pancreatic pseudocyst. No underlying mass or evidence of pancreatic obstruction. 2. Interval development of trace bilateral pleural effusions which are likely reactive. Bibasilar atelectasis/consolidation. 3. No evidence of choledocholithiasis or biliary obstruction. Assessment and Plan - Diagnosis (1) Abdominal pain Qualifiers: Abdominal location: epigastric Qualified Code(s): R10.13 - Epigastric pain Is this a current diagnosis for this admission?: Yes (2) Nausea and vomiting Qualifiers: Vomiting type: unspecified Vomiting Intractability: non-intractable Qualified Code(s): R11.2 - Nausea with vomiting, unspecified Is this a current diagnosis for this admission?: Yes (3) Hypertension Qualifiers: Hypertension type: essential hypertension Qualified Code(s): I10 - Essential (primary) hypertension Is this a current diagnosis for this admission?: Yes (4) Hypercholesterolemia Is this a current diagnosis for this admission?: Yes (5) Hyperglycemia due to type 2 diabetes mellitus Qualifiers: Diabetes mellitus assisted insulin use: without assisted use Qualified Code(s): E11.65 - Type 2 diabetes mellitus with hyperglycemia Is this a current diagnosis for this admission?: Yes (6) Acute pancreatitis Qualifiers: Pancreatitis type: other Acute pancreatitis complication: no infection or necrosis Qualified Code(s): K85.80 - Other acute pancreatitis without necrosis or infection Is this a current diagnosis for this admission?: Yes (7) Central sleep apnea Is this a current diagnosis for this admission?: Yes - Plan Summary Summary: (1) Abdominal pain Qualifiers: Abdominal location: epigastric Qualified Code(s): R10.13 - Epigastric pain (2) Nausea and vomiting Qualifiers: Vomiting type: unspecified Vomiting Intractability: non-intractable Qualified Code(s): R11.2 - Nausea with vomiting, unspecified (3) Hypertension Qualifiers: Hypertension type: essential hypertension Qualified Code(s): I10 - E ssential (primary) hypertension (4) Hypercholesterolemia Is this a current diagnosis for this admission?: Yes (5) Hyperglycemia due to type 2 diabetes mellitus Qualifiers: Diabetes mellitus assisted insulin use: without assisted use Qualified Code(s): E11.65 - Type 2 diabetes mellitus with hyperglycemia (6) Acute pancreatitis Qualifiers: Pancreatitis type: other Acute pancreatitis complication: no infection or necrosis Qualified Code(s): K85.80 - Other acute pancreatitis without necrosis or infection (7) Central sleep Apnea 02/07/2020 Pancreatitis-n.p.o. at this time. Aggressive IV fluids. Morphine for analgesia. Patient does not have high triglycerides. There is no evidence of ductal dilatation. Unsure of the etiology. Abdominal pain secondary to pancreatitis-IV analgesia Nausea and vomiting secondary to pancreatitis-antiemetics and IV fluids Hypertension-hold metoprolol and lisinopril at this time. We will add back based on vital signs. Hypercholesterolemia-triglycerides are only 85 we will repeat lipid panel. Hold atorvastatin at this time. Diabetes-hold Metformin and Actos. Accu-Cheks every 6 hours with sliding scale insulin Sleep apnea-the patient's will bring in his CPAP machine. 02/08/2020 Patient now with fever and his white count increased despite a significant decrease in his lipase level. He also has right lower quadrant pain which she did not have previously. The patient was assessed by Dr. Wlilis. We discussed the case afterwards. Pancreatitis-the patient does have a significant pancreatitis. The degree of inflammation certainly can cause an elevated white count and fever. I am going to discontinue the antibiotic as the risk of complications such as C. difficile outweighs any benefit. The white blood cell count increased. But this certainly could be a reaction to the inflammation in the pancreatitis. We will recheck the count tomorrow. The lipase decreased significantly but this sometimes has no direct bearing on the patient's overall condition. Accu-Cheks have been not requiring sliding scale insulin. Will decrease Accu- Cheks and sliding scale dosing to every 12 hours. Once the patient is taking meals will adjust to mealtime. Continue CPAP for sleep apnea. The patient is tolerating ice chips. He can have intermittent sips of clears as desired. No nausea today. 02/09/2020 The patient is still having significant epigastric and right lower quadrant pain. He is tolerating ice chips and sips of water. He has no appetite as yet. Lipase continues to improve and is down to 691 today. His white blood cell count is up again slightly at 22,000. His T-max was 100.8 just after midnight. MRCP was negative/unremarkable. Continue current treatment plan. Still unsure of the etiology of the pancreatitis. - Time Time Spent with patient: 15-24 minutes Medications reviewed and adjusted accordingly: Yes Anticipated Discharge Disposition: Home, Self Care Anticipated Discharge Timeframe: Unknown
[2020-02-09] MEDS: POTASSI CL 20 MEQ/50 ML RIDER 20 MEQ/50 ML RTUPB IV SCH ×2 (12:44→15:06)
[2020-02-09] MEDS: ACETAMINOPHEN 325 MG TABLET PO PRN (15:11)
[2020-02-10] MEDS: ONDANSETRON HCL INJ/PF 4 MG/2 ML SDV IV PRN (02:07)
[2020-02-10] MEDS: MORPHINE SULFATE 10 MG/ML INJ IV PRN (02:07)
[2020-02-10 06:11] LABS: ABSOLUTE EOSINOPHILS # (AUTO) 0.1 10^3/uL (0.0-0.6); ABSOLUTE LYMPHOCYTES (AUTO) 1.5 10^3/uL (0.5-4.7); ABSOLUTE MONOCYTES (AUTO) 1.3 10^3/uL (0.1-1.4); ABSOLUTE NEUT (AUTO) 13.1 10^3/uL (1.7-8.2); BASOPHILS % (AUTO) 0.1 % (0-2); EOSINOPHILS % (AUTO) 0.3 % (0-6); HEMATOCRIT 45.6 % (37.9-51.0); HEMOGLOBIN 15.3 g/dL (13.5-17.0); LYMPHOCYTES % (AUTO) 9.5 % (13-45); MEAN CORPUSCULAR HEMOGLOBIN 30.3 pg (27.0-33.4); MEAN CORPUSCULAR HGB CONC 33.5 g/dL (32.0-36.0); MEAN CORPUSCULAR VOLUME 90 fl (80-97); MONOCYTES % (AUTO) 8.2 % (3-13); PLATELET COUNT 187 10^3/uL (150-450); RED BLOOD COUNT 5.05 10^6/uL (4.35-5.55); SEGMENTED NEUTROPHILS % (AUTO) 81.9 % (42-78); TOTAL CELLS COUNTED % (AUTO) 100 %
[2020-02-10 06:40] LABS: ALBUMIN 3.8 g/dL (3.5-5.0); ALKALINE PHOSPHATASE 92 U/L (38-126); ANION GAP 11 (5-19); ASPARTATE AMINO TRANSFERASE 26 U/L (17-59); BILIRUBIN,DIRECT 0.3 mg/dL (0.0-0.4); BILIRUBIN,TOTAL 1.3 mg/dL (0.2-1.3); BLOOD UREA NITROGEN 15 mg/dL (7-20); CALCIUM 8.9 mg/dL (8.4-10.2); CARBON DIOXIDE 30 mmol/L (22-30); CHLORIDE 96 mmol/L (98-107); GLUCOSE 99 mg/dL (75-110); POTASSIUM 3.5 mmol/L (3.6-5.0); TOTAL PROTEIN 6.7 g/dL (6.3-8.2)
[2020-02-10] MEDS: HEPARIN SOD (PORCINE) 5,000 UNIT/ML 1 ML VIAL SUBCUT SCH ×2 (07:09→13:42)
[2020-02-10] MEDS: PANTOPRAZOLE SODIUM 40 MG TABLET.DR PO SCH (07:09)
[2020-02-10] MEDS ORDERED: POTASSI CL 20 MEQ/NS 1L 1,000 ML IV PRN (07:59)
[2020-02-10] MEDS ORDERED: POTASSIUM CHLORIDE 10 MEQ TABLET.ER PO ONE (09:00)
--- NOTE | 2020-02-10 09:32 | PDOC PROGRESS REPORT ---
Subjective Date:: 02/10/20 Subjective:: Patient is still complaining of diffuse upper abdominal discomfort, no nausea vo miting Reason For Visit: ACUTE PANCREATITIS, ABDOMINAL PAIN, VAUSEA AND VO- Physical Exam Vital Signs: Temp Pulse Resp BP Pulse Ox 98.6 F 85 16 113/52 L 91 L 02/10/20 08:01 02/10/20 07:49 02/10/20 07:49 02/10/20 07:49 02/10/20 07:49 Intake & Output 02/09/20 02/10/20 02/11/20 06:59 06:59 06:59 Intake Total 3080 310 Output Total 600 Balance 2480 310 Weight 107.7 kg 103.2 kg General appearance: PRESENT: no acute distress, obese Respiratory exam: PRESENT: clear to auscultation adolph Cardiovascular exam: PRESENT: RRR GI/Abdominal exam: PRESENT: distended, hypoactive bowel sounds, rebound - None, soft, tenderness - Present in the upper abdomen Results Laboratory Results: 02/10/20 05:11 02/10/20 05:11 02/09/20 02/10/20 02/10/20 04:48 05:11 05:11 WBC 16.0 H RBC 5.05 Hgb 15.3 Hct 45.6 MCV 90 MCH 30.3 MCHC 33.5 RDW 13.0 Plt Count 187 Seg Neutrophils % 81.9 H Sodium 136.7 L Potassium 3.5 L Chloride 96 L Carbon Dioxide 30 Anion Gap 11 BUN 15 Creatinine 0.59 Est GFR ( Amer) > 60 Glucose 99 Calcium 8.9 Magnesium 2.0 Total Bilirubin 1.3 AST 26 Alkaline Phosphatase 92 Total Protein 6.7 Albumin 3.8 Triglycerides 120 Cholesterol 120.29 LDL Cholesterol Direct 53 VLDL Cholesterol 24.0 HDL Cholesterol 40 Lipase 371.3 H Impressions: Abdomen/Pelvis CT 02/07/20 05:04 IMPRESSION: 1. Findings compatible with acute interstitial pancreatitis. 2. Hepatic steatosis. This exam was performed according to our departmental dose-optimization program, which includes automated exposure control, adjustment of the mA and/or kV according to patient size and/or use of iterative reconstruction technique. Chest X-Ray 02/08/20 00:00 IMPRESSION: Mild patchy left basilar opacities, possibly atelectasis or pneumonia. Abdomen MRI 02/09/20 00:00 IMPRESSION: 1. Diffuse enlargement of the pancreas with surrounding peripancreatic fluid and small amount of ascites in the pericolic gutters, consistent with acute pancreatitis. No pancreatic pseudocyst. No underlying mass or evidence of pancreatic obstruction. 2. Interval development of trace bilateral pleural effusions which are likely reactive. Bibasilar atelectasis/consolidation. 3. No evidence of choledocholithiasis or biliary obstruction. Assessment & Plan - Diagnosis (1) Abdominal pain Qualifiers: Abdominal location: epigastric Qualified Code(s): R10.13 - Epigastric pain Is this a current diagnosis for this admission?: Yes (2) Acute pancreatitis Qualifiers: Pancreatitis type: other Acute pancreatitis complication: no infection or necrosis Qualified Code(s): K85.80 - Other acute pancreatitis without necrosis or infection Is this a current diagnosis for this admission?: Yes - Time Anticipated Discharge Disposition: Home, Self Care Anticipated Discharge Timeframe: within 72 hours - Plan Summary Plan Summary: Assessment: Post laparoscopic cholecystectomy for symptomatic cholelithiasis uneventful 1 month ago Acute pancreatitis which occurred 1 month postop, unknown cause (patient denies trauma, surgery, recent alcohol abuse, new medications, recent viral infections, and family history of pancreatitis) MRCP done yesterday reveals normal appearance of the bile ducts and pancreatic ducts as well as an inflamed pancreas Lipase decreased to 371 White blood cell count down to 16,000 today, again most likely reactive Normal bilirubin and liver profile Physical exam demonstrates a soft abdomen is slightly tender without wound Based on the above findings, I would diagnose this pancreatitis secondary to nondisclosed alcohol abuse The patient admits to heavy drinking in the past Plan: Advance diet to clear liquids If tolerated, the patient be on a low-fat diet for 1 year Patient to be counseled to be off alcoholic beverages lifetime Patient to be counseled to consult the physician before starting new medications I will sign off. Please call me with questions
[2020-02-10] MEDS: METOPROLOL SUCCINATE 50 MG TAB.SR.24H PO SCH (10:42)
[2020-02-10] MEDS: INSULIN REG, HUMAN 100 UNIT/ML 3 ML VIAL (PYX) SUBCUT SCH (10:43)
--- NOTE | 2020-02-10 13:17 | PDOC DISCHARGE SUMMARY ---
Impression - Admit/DC Date/PCP Admission Date/Primary Care Provider: 02/07/20 07:32 VALERIA BURGOS PA-C Discharge Date: 02/10/20 - Discharge Diagnosis (1) Abdominal pain Is this a current diagnosis for this admission?: Yes (2) Nausea and vomiting Is this a current diagnosis for this admission?: Yes (3) Hypertension Is this a current diagnosis for this admission?: Yes (4) Hypercholesterolemia Is this a current diagnosis for this admission?: Yes (5) Hyperglycemia due to type 2 diabetes mellitus Is this a current diagnosis for this admission?: Yes (6) Acute pancreatitis Is this a current diagnosis for this admission?: Yes (7) Central sleep apnea Is this a current diagnosis for this admission?: Yes - Assessment Summary: (1) Abdominal pain Qualifiers: Abdominal location: epigastric Qualified Code(s): R10.13 - Epigastric pain (2) Nausea and vomiting Qualifiers: Vomiting type: unspecified Vomiting Intractability: non-intractable Qualified Code(s): R11.2 - Nausea with vomiting, unspecified (3) Hypertension Qualifiers: Hypertension type: essential hypertension Qualified Code(s): I10 - Essential (primary) hypertension (4) Hypercholesterolemia Is this a current diagnosis for this admission?: Yes (5) Hyperglycemia due to type 2 diabetes mellitus Qualifiers: Diabetes mellitus correction insulin use: without extermination inspector use Qualified Code(s): E11.65 - Type 2 diabetes mellitus with hyperglycemia (6) Acute pancreatitis Qualifiers: Pancreatitis type: other Acute pancreatitis complication: no infection or necrosis Qualified Code(s): K85.80 - Other acute pancreatitis without necrosis or infection (7) Central sleep Apnea 02/07/2020 Pancreatitis-n.p.o. at this time. Aggressive IV fluids. Morphine for analgesia. Patient does not have high triglycerides. There is no evidence of ductal dilatation. Unsure of the etiology. Abdominal pain secondary to pancreatitis-IV analgesia Nausea and vomiting secondary to pancreatitis-antiemetics and IV fluids Hypertension-hold metoprolol and lisinopril at this time. We will add back based on vital signs. Hypercholesterolemia-triglycerides are only 85 we will repeat lipid panel. Hold atorvastatin at this time. Diabetes-hold Metformin and Actos. Accu-Cheks every 6 hours with sliding scale insulin Sleep apnea-the patient's will bring in his CPAP machine. 02/08/2020 Patient now with fever and his white count increased despite a significant decrease in his lipase level. He also has right lower quadrant pain which she did not have previously. The patient was assessed by Dr. Willis. We discussed the case afterwards. Pancreatitis-the patient does have a significant pancreatitis. The degree of inflammation certainly can cause an elevated white count and fever. I am going to discontinue the antibiotic as the risk of complications such as C. difficile outweighs any benefit. The white blood cell count increased. But this certainly could be a reaction to the inflammation in the pancreatitis. We will recheck the count tomorrow. The lipase decreased significantly but this sometimes has no direct bearing on the patient's overall condition. Accu-Cheks have been not requiring sliding scale insulin. Will decrease Accu- Cheks and sliding scale dosing to every 12 hours. Once the patient is taking meals will adjust to mealtime. Continue CPAP for sleep apnea. The patient is tolerating ice chips. He can have intermittent sips of clears as desired. No nausea today. 02/09/2020 The patient is still having significant epigastric and right lower quadrant pain. He is tolerating ice chips and sips of water. He has no appetite as yet. Lipase continues to improve and is down to 691 today. His white blood cell count is up again slightly at 22,000. His T-max was 100.8 just after midnight. MRCP was negative/unremarkable. Continue current treatment plan. Still unsure of the etiology of the pancreatitis. 02/10/2020 The patient has been up and walking around. He has not had a bowel movement but he has passed gas. He reports that the pain is improved. He is tolerating clear liquids. His white blood cell count is down to 16,000 and his last low-grade fever was over 36 hours ago. He is stable to go home. I have asked him to hold his lisinopril until next week, or until he sees Valeria burgos, since we have been holding it here for low blood pressure. - Additional Information Resuscitation Status: Full Code Discharge Diet: Other (Comments) - Advance slowly as described above Discharge Activity: Activity As Tolerated, Slowly Increase Activity Referrals: VALERIA BURGOS PA-C [Primary Care Provider] - 02/21/20 10:15 am Prescriptions: Hydrocodone/Acetaminophen [Desha 5-325 mg Tablet] 1 tab PO Q8 PRN #10 tablet PRN Reason: For Pain Scale 4-5 Home Medications: Lisinopril [Prinivil 40 mg Tablet] 40 mg PO DAILY 07/07/18 Atorvastatin Calcium [Lipitor 40 mg Tablet] 40 mg PO QHS 12/28/19 Pioglitazone HCl [Actos] 30 mg PO DAILY 12/28/19 Metformin HCl [Glucophage 500 mg Tablet] 2,000 mg PO QHS 02/07/20 Metoprolol Succinate [Toprol Xl 50 mg Tab.sr] 50 mg PO DAILY 02/07/20 Omeprazole 20 mg PO DAILY 02/07/20 Hydrocodone/Acetaminophen [Desha 5-325 mg Tablet] 1 tab PO Q8 PRN #10 tablet 02/10/20 Phenol/Sodium Phenolate [Chloraseptic Sore Throat [place] 177 ml] 2 spray PO PRN PRN bottle 02/10/20 History of Present Illiness History of Present Illness: GERMAN PARK is a 40 year old male with past medical history of type 2 diabetes, hypertension and hyperlipidemia who underwent laparoscopic cholecystectomy last month. Since then he has to prior episodes of abdominal pain. One was 2 weeks ago and the second was last week. Today is the worst of the 3. Review of studies from the January 23 visit reveals a normal lipase, normal white blood cell count and ultrasound study that shows no evidence of pancreatitis. He reports several days of increasing abdominal pain with nausea and vomiting. He states he feels bloated. There is no specific relation to food. He denies fever and chills. The discomfort would wax and wane previously but now it is severe and unrelenting. It is exacerbated by changes in position but there is constant pain. Lipase is 22,139 with elevated transaminases and elevated bilirubin. White blood cell count is slightly elevated at 14.9. Patient will be admitted for IV fluids. He will be kept n.p.o. Will use Accu- Cheks and sliding scale for his diabetes. Hospital Course Hospital Course: As described above Physical Exam Vital Signs: Temp Pulse Resp BP Pulse Ox 99.0 F 91 16 122/75 96 02/10/20 10:28 02/10/20 10:28 02/10/20 10:28 02/10/20 10:28 02/10/20 10:28 Intake & Output 02/09/20 02/10/20 02/11/20 06:59 06:59 06:59 Intake Total 3080 310 Output Total 600 Balance 2480 310 Weight 107.7 kg 103.2 kg General appearance: PRESENT: mild distress Respiratory exam: PRESENT: clear to auscultation adolph, rales. ABSENT: rhonchi, tachypnea, wheezes Cardiovascular exam: PRESENT: RRR, +S1, +S2 GI/Abdominal exam: PRESENT: normal bowel sounds, soft, tenderness Extremities exam: ABSENT: pedal edema Musculoskeletal exam: PRESENT: ambulatory, normal inspection. ABSENT: deformity, dislocation Neurological exam: PRESENT: alert, awake, oriented to person, oriented to place, oriented to time, oriented to situation, CN II-XII grossly intact Psychiatric exam: PRESENT: appropriate affect. ABSENT: agitated, anxious Focused psych exam: ABSENT: delusional, paranoid, restlessness Results Laboratory Results: WBC 16.0 10^3/uL (4.0-10.5) H 02/10/20 05:11 RBC 5.05 10^6/uL (4.35-5.55) 02/10/20 05:11 Hgb 15.3 g/dL (13.5-17.0) 02/10/20 05:11 Hct 45.6 % (37.9-51.0) 02/10/20 05:11 MCV 90 fl (80-97) 02/10/20 05:11 MCH 30.3 pg (27.0-33.4) 02/10/20 05:11 MCHC 33.5 g/dL (32.0-36.0) 02/10/20 05:11 RDW 13.0 % (11.5-14.0) 02/10/20 05:11 Plt Count 187 10^3/uL (150-450) 02/10/20 05:11 Lymph % (Auto) 9.5 % (13-45) L 02/10/20 05:11 [place] % (Auto) 8.2 % (3-13) 02/10/20 05:11 Eos % (Auto) 0.3 % (0-6) 02/10/20 05:11 Baso % (Auto) 0.1 % (0-2) 02/10/20 05:11 Absolute Neuts (auto) 13.1 10^3/uL (1.7-8.2) H 02/10/20 05:11 Absolute Lymphs (auto) 1.5 10^3/uL (0.5-4.7) 02/10/20 05:11 Absolute Monos (auto) 1.3 10^3/uL (0.1-1.4) 02/10/20 05:11 Absolute Eos (auto) 0.1 10^3/uL (0.0-0.6) 02/10/20 05:11 Absolute Basos (auto) 0.0 10^3/uL (0.0-0.2) 02/10/20 05:11 Total Counted 100 02/09/20 04:48 Seg Neutrophils % 81.9 % (42-78) H 02/10/20 05:11 Seg Neuts % (Manual) 78 % (42-78) 02/09/20 04:48 Lymphocytes % (Manual) 7 % (13-45) L 02/09/20 04:48 Monocytes % (Manual) 15 % (3-13) H 02/09/20 04:48 Eosinophils % (Manual) 0 % (0-6) 02/09/20 04:48 Basophils % (Manual) 0 % (0-2) 02/09/20 04:48 Abs Neuts (Manual) 17.2 10^3/uL (1.7-8.2) H 02/09/20 04:48 Abs Lymphs (Manual) 1.5 10^3/uL (0.5-4.7) 02/09/20 04:48 Abs Monocytes (Manual) 3.3 10^3/uL (0.1-1.4) H 02/09/20 04:48 Absolute Eos (Manual) 0.0 10^3/uL (0.0-0.6) 02/09/20 04:48 Abs Basophils (Manual) 0.0 10^3/uL (0.0-0.2) 02/09/20 04:48 Toxic Granulation SLIGHT 02/07/20 04:22 Clumped Platelets PRESENT 02/09/20 04:48 Platelet Comment ADEQUATE 02/09/20 04:48 Polychromasia SLIGHT 02/09/20 04:48 Poikilocytosis SLIGHT 02/07/20 04:22 Anisocytosis SLIGHT 02/07/20 04:22 Tear Drop Cells SLIGHT 02/07/20 04:22 Sodium 136.7 mmol/L (137-145) L 02/10/20 05:11 Potassium 3.5 mmol/L (3.6-5.0) L 02/10/20 05:11 Chloride 96 mmol/L (98-107) L 02/10/20 05:11 Carbon Dioxide 30 mmol/L (22-30) 02/10/20 05:11 Anion Gap 11 (5-19) 02/10/20 05:11 BUN 15 mg/dL (7-20) 02/10/20 05:11 Creatinine 0.59 mg/dL (0.52-1.25) 02/10/20 05:11 Est GFR ( Amer) > 60 (>60) 02/10/20 05:11 Est GFR (MDRD) Non-Af > 60 (>60) 02/10/20 05:11 Glucose 99 mg/dL (75-110) 02/10/20 05:11 POC Glucose 91 mg/dL (70-110) 02/10/20 10:32 Hemoglobin A1c % 7.6 % (4.7-6.0) H 02/08/20 04:08 Calcium 8.9 mg/dL (8.4-10.2) 02/10/20 05:11 Magnesium 2.0 mg/dL (1.6-2.3) 02/10/20 05:11 Total Bilirubin 1.3 mg/dL (0.2-1.3) 02/10/20 05:11 Direct Bilirubin 0.3 mg/dL (0.0-0.4) 02/10/20 05:11 Neonat Total Bilirubin Not Reportable 02/10/20 05:11 Neonat Direct Bilirubin Not Reportable 02/10/20 05:11 Neonat Indirect Bili Not Reportable 02/10/20 05:11 AST 26 U/L (17-59) 02/10/20 05:11 ALT 92 U/L (<50) H 02/10/20 05:11 Alkaline Phosphatase 92 U/L (38-126) 02/10/20 05:11 Total Protein 6.7 g/dL (6.3-8.2) 02/10/20 05:11 Albumin 3.8 g/dL (3.5-5.0) 02/10/20 05:11 Triglycerides 120 mg/dL (<150) 02/09/20 04:48 Cholesterol 120.29 mg/dL (0-200) 02/09/20 04:48 LDL Cholesterol Direct 53 mg/dL (<100) 02/09/20 04:48 VLDL Cholesterol 24.0 mg/dL (10-31) 02/09/20 04:48 HDL Cholesterol 40 mg/dL (>40) 02/09/20 04:48 Lipase 371.3 U/L (23-300) H 02/10/20 05:11 Urine Color STRAW 02/08/20 14:12 Urine Appearance CLEAR 02/08/20 14:12 Urine pH 6.0 (5.0-9.0) 02/08/20 14:12 Ur Specific [place] 1.008 02/08/20 14:12 Urine Protein NEGATIVE mg/dL (NEGATIVE) 02/08/20 14:12 Urine Glucose (UA) NEGATIVE mg/dL (NEGATIVE) 02/08/20 14:12 Urine Ketones 20 mg/dL (NEGATIVE) H 02/08/20 14:12 Urine Blood NEGATIVE (NEGATIVE) 02/08/20 14:12 Urine Nitrite NEGATIVE (NEGATIVE) 02/07/20 05:55 Urine Nitrite (Reflex) NEGATIVE (NEGATIVE) 02/08/20 14:12 Urine Bilirubin NEGATIVE (NEGATIVE) 02/08/20 14:12 Urine Urobilinogen NEGATIVE mg/dL (<2.0) 02/08/20 14:12 Ur Leukocyte Esterase NEGATIVE (NEGATIVE) 02/07/20 05:55 Leukocyte Esterase Rfl NEGATIVE (NEGATIVE) 02/08/20 14:12 Urine WBC (Auto) 2 /HPF 02/07/20 05:55 Urine RBC (Auto) 0 /HPF 02/08/20 14:12 U Hyaline Cast (Auto) 4 /LPF 02/07/20 05:55 Urine WBC (Reflex) < 1 /HPF 02/08/20 14:12 Urine Mucus (Auto) RARE /LPF 02/07/20 05:55 Urine Ascorbic Acid NEGATIVE (NEGATIVE) 02/08/20 14:12 Impressions: Abdomen/Pelvis CT 02/07/20 05:04 IMPRESSION: 1. Findings compatible with acute interstitial pancreatitis. 2. Hepatic steatosis. This exam was performed according to our departmental dose-optimization program, which includes automated exposure control, adjustment of the mA and/or kV according to patient size and/or use of iterative reconstruction technique. Chest X-Ray 02/08/20 00:00 IMPRESSION: Mild patchy left basilar opacities, possibly atelectasis or pneumonia. Abdomen MRI 02/09/20 00:00 IMPRESSION: 1. Diffuse enlargement of the pancreas with surrounding peripancreatic fluid and small amount of ascites in the pericolic gutters, consistent with acute pancreatitis. No pancreatic pseudocyst. No underlying mass or evidence of pancreatic obstruction. 2. Interval development of trace bilateral pleural effusions which are likely reactive. Bibasilar atelectasis/consolidation. 3. No evidence of choledocholithiasis or biliary obstruction. Plan Health Concerns: Severe pancreatitis with no obvious etiology Plan of Treatment: Continue very conservative course with diet restrictions as outlined above Goals: Complete resolution of pancreatitis without recurrence Time Spent: Greater than 30 Minutes Stroke Is this a Stroke Patient?: No Acute Heart Failure Is this a Heart Failure Patient?: No
[2020-02-10 13:48] VITALS: BP 139/79
== END 2020-02-10 14:42 | disposition home or self-care (01) | DRG 440 ==
LOC: ER 02:53 → EH 07:32 → 4N 14:02
PROVIDERS: ADMIT Hospitalist; ATTEND Hospitalist
DX: K85.00 Idiopathic acute pancreatitis without necrosis or infection (principal); E11.65 Type 2 diabetes mellitus with hyperglycemia; G47.31 Primary central sleep apnea; I10 Essential (primary) hypertension; E78.00 Pure hypercholesterolemia, unspecified; Z88.2 Allergy status to sulfonamides; Z90.49 Acquired absence of other specified parts of digestive tract; Z79.84 Long term (current) use of oral hypoglycemic drugs
CPT/HCPCS: 36415; 71045; 74177; 74181; 80053; 80061; 81001; 82962; 83036; 83690; 83735; 84478; 85025; 87040; 87070; 96361; 96374; 96375; 99285; J0692; J2270; J2405; J3480; J3490; J7030; J7060; J7120; S0028

== ENCOUNTER 2020-02-20 08:29 | Day surgery (SDC) | payer OTHER ==
[~2020-02-20 08:29] MED LIST changes: -ACETAMINOPHEN 325 MG TABLET PO PRN; -CEFAZOLIN 1 GM/D5W RTU 1 GM/50 ML RTUPB IV ONE; -CEFAZOLIN 1 GM/D5W RTU 1 GM/50 ML RTUPB IV PRN; -LACTATED RINGERS 1000 ML IV PRN; +PROPOFOL INJ 200 MG/20 ML VIAL IV ONE
--- NOTE | 2020-02-20 11:33 | Operative Report ---
Operative Report DATE OF SURGERY: 02/20/20 Operative Report: The risk, benefits and alternatives of the procedure including the risk of bleeding, perforation requiring surgery have been explained to the patient in detail and informed consent has been obtained. Patient is taken back to the endoscopy suite and placed in left, lateral decubital position. Timeout was called. Propofol medication is administered. A rectal examination is done which did not reveal any masses, tears or fissures. An Olympus videoscope was introduced into the patient's rectum. Scope was then advanced carefully to the cecum. Brief intubation of the terminal ileum is done. Scope was then sequentially pulled back via the various segments of the colon including the ascending colon, hepatic flexure, transverse colon, splenic flexure, descending colon finally into the rectosigmoid portions of the colon. Retroflexion maneuver is performed. The risks benefits and alternatives of the procedure explained to the patient in detail and informed consent is obtained.A GIF Olympus video scope was inserted into the patient's mouth and hypopharynx ,the esophagus is identified intubated and insufflated ,the scope was then advanced through the esophagus stomach and duodenum ,retroflexion maneuver is done ,the esophagus stomach and first and second portions of the duodenum examined PREOPERATIVE DIAGNOSIS: Change in bowel habits. Epigastric pain POSTOPERATIVE DIAGNOSIS: Normal terminal ileum. Right colon inflammation status post biopsy. Gastritis status post biopsy. Esophagitis status post biopsy rule out eosinophilic esophagitis OPERATION: Colonoscopy with biopsy. EGD with biopsy SURGEON: MADI HOLLEY ANESTHESIA: LMAC TISSUE REMOVED OR ALTERED: As noted above. COMPLICATIONS: None. ESTIMATED BLOOD LOSS: None. INTRAOPERATIVE FINDINGS: As noted above. PROCEDURE: Patient tolerated the procedure well. No immediate postprocedure complications are noted. Patient is discharged in good condition. Discharge date 02/20/2020. Discharge diet: Regular. Discharge activity: Regular. 2 to 3-week follow-up to discuss findings. Patient is instructed to call the office or proceed to the emergency room should there be any further problems or questions. Wait on the pathology.
[2020-02-20 12:09] VITALS: BP 89/56
== END 2020-02-21 12:05 | disposition home or self-care (01) ==
LOC: END 08:29
PROVIDERS: ATTEND Internal Medicine Gastroenterology
DX: K52.9 Noninfective gastroenteritis and colitis, unspecified (principal); K21.00 Gastro-esophageal reflux disease with esophagitis, without bleeding; K31.9 Disease of stomach and duodenum, unspecified; K29.70 Gastritis, unspecified, without bleeding; G47.33 Obstructive sleep apnea (adult) (pediatric); E11.9 Type 2 diabetes mellitus without complications; I10 Essential (primary) hypertension; Z79.899 Other long term (current) drug therapy; Z90.49 Acquired absence of other specified parts of digestive tract; Z79.84 Long term (current) use of oral hypoglycemic drugs
CPT/HCPCS: 43239; 45380; 82962; 88305 ×2; 00813; J2704; 813